=== PATIENT | female | born 1960 ===

== ENCOUNTER 2020-07-30 16:11 | Outpatient (REF) | payer SELFPAY ==
--- NOTE | 2020-07-30 16:12 | US_ITS ---
EXAMINATION: US VENOUS ULTRASOUND WITH DOPPLER LOWER EXTREMITY, LEFT CLINICAL INFORMATION: Pain left lower extremity. Assess for occult DVT. COMPARISON: None TECHNIQUE: Ultrasound of the deep veins is performed from the hip to the calf with compression sonography and color and pulse Doppler assessment. Spectral analysis with color-flow imaging is performed. FINDINGS: There is normal venous compression and respiratory variation and augmented flow. The visualized common femoral vein, superficial femoral vein, profunda femoral vein, popliteal vein, and the trifurcation region shows no evidence of deep venous thrombosis. There is a popliteal fossa cyst present measuring 2.7 x 1.7 x 2.8 cm. US/US venous duplex LE IMPRESSION: 1. No DVT demonstrated in the left lower extremity. 2. Left popliteal fossa cyst 2.8 cm.
== END 2020-07-30 16:12 | disposition home or self-care (01) ==
LOC: HO.HMGCX 16:11
PROVIDERS: Visit Provider Internal Medicine
DX: M79.662 Pain in left lower leg (principal); M79.672 Pain in left foot
CPT/HCPCS: 93971

== ENCOUNTER 2020-10-07 15:24 | Outpatient (REF) | payer OTHER, SELFPAY ==
[2020-10-07 16:05] LABS: MANUAL DIFF FLAG NO
[2020-10-07 16:11] LABS: Basophils Absolute Auto 0.1 X10*3/uL (0.0-0.2); Basophils Percent Auto 0.9 % (0-2); Eosinophils Absolute Auto 0.1 X10*3/uL (0.0-0.4); Hematocrit 42.1 % (37-47); Hemoglobin 13.5 g/dl (12.0-16.0); Imm Gran Abs Auto 0.02 X10*3/uL (0.00-0.03); Imm Gran Pct Auto 0.3 % (0.0-0.4); Lymphocytes Absolute Auto 2.3 X10*3/uL (1.2-4.9); Lymphocytes Percent Auto 35.9 % (20-40); Mean Corpuscular HGB Conc 32.1 g/dl (31.0-35.0); Mean Corpuscular Hemoglobin 28.9 pg (27.0-33.0); Mean Corpuscular Volume 90.1 fL (80-98); Mean Platelet Volume 9.2 fL (9.4-12.3); Monocytes Absolute Auto 0.4 X10*3/uL (0.1-1.2); Monocytes Percent Auto 6.5 % (2-11); Neutrophils Absolute Auto 3.5 X10*3/uL (2.0-8.3); Neutrophils Percent Auto 54.4 % (45-73); Platelet Count 335 X10*3/uL (160-400); Red Blood Count 4.67 X10*6/uL (4.20-5.50); Red Cell Distribution Width 12.6 % (11.0-16.0); White Blood Count 6.5 X10*3/uL (4.8-10.8)
[2020-10-07 16:53] LABS: Alanine Aminotransferase 45 U/L (0-31); Albumin Level 4.1 g/dL (3.5-5.0); Alkaline Phosphatase 85 U/L (39-117); Anion Gap 11 (12-20); Aspartate Amino Transferase 33 U/L (5-31); Bilirubin Total 0.4 mg/dL (0.0-1.0); Blood Urea Nitrogen 16 mg/dL (9-16); C Reactive Protein 0.17 mg/dL (< or = 0.50); Calcium 9.2 mg/dL (8.4-10.2); Carbon Dioxide 27 mmol/L (22-29); Chloride 105 mmol/L (96-108); Cholesterol 202 mg/dL; Estimated Glomerular Filt Rate > 60; Glucose Fasting 83 mg/dL (60-99); HDL Cholesterol 55 mg/dL; LDL Cholesterol Calculated 125 mg/dl; Potassium 4.2 mmol/l (3.3-5.1); Sodium 139 mmol/L (135-145); Total Protein 7.4 g/dL (6.5-8.0); Triglycerides 111 mg/dL
[2020-10-07 17:02] LABS: Erythrocyte Sedimentation Rate 12 MM/HR (0-20)
== END 2020-10-07 15:25 | disposition home or self-care (01) ==
LOC: HO.LAB 15:24
PROVIDERS: Visit Provider Internal Medicine
DX: Z00.01 Encounter for general adult medical examination with abnormal findings (principal); M79.672 Pain in left foot; M79.662 Pain in left lower leg; K21.9 Gastro-esophageal reflux disease without esophagitis; G47.00 Insomnia, unspecified; Z78.0 Asymptomatic menopausal state
CPT/HCPCS: 36415; 80053; 80061; 82306; 85025; 85652; 86140

== ENCOUNTER 2020-11-26 16:16 | Outpatient (REF) | payer OTHER, SELFPAY ==
--- NOTE | ~2020-11-26 | XR_ITS ---
EXAMINATION: XR CHEST CLINICAL INFORMATION: Chest pain COMPARISON: Prior chest radiographs, most recently 10/24/2019 TECHNIQUE: 2 views of the chest were obtained. FINDINGS: Gastric band has been removed since the prior study. There is a small hiatus hernia and there are metallic clips overlying the right upper quadrant of the abdomen. The lungs are well-expanded and there is small amount of linear opacity along the minor fissure which is similar to the prior study. No new focal opacities are identified. There is no pleural effusion or pneumothorax. The cardiomediastinal silhouette is stable in size and contour. Structures of the chest wall are normal for age. XR/XR chest 2V IMPRESSION: No acute intrathoracic process. There is minimal linear opacity along the minor fissure which is similar to prior study. Interval removal of gastric band.
== END 2020-11-26 16:17 | disposition home or self-care (01) ==
LOC: HO.HMGCX 16:16
PROVIDERS: PCP Internal Medicine; Visit Provider Nurse Practitioner Family
DX: R07.89 Other chest pain (principal); R01.1 Cardiac murmur, unspecified; Z20.822 Contact with and (suspected) exposure to COVID-19
CPT/HCPCS: 36415; 71046; U0003; U0005

== ENCOUNTER → 2021-01-21 15:10 | Outpatient (REF) | payer OTHER, SELFPAY ==
--- NOTE | 2021-01-21 15:13 | CA_ITS ---
Transthoracic Echocardiogram Patient (Last, First, Middle): Shelli Hernandez M Gender: Female Date of : 1960 Age: 60 Procedure Date: 01/21/2021 Procedure Type: Transthoracic Echocardiogram Location: OP Height: 172.72 cm Weight: 95.26 kg BSA: 2.09 m2 Heart Rate: bpm BP: 140 / 80 mmHg [employer] Clerks Supervisor: ALEX Paredes MD: Bebeto Danielle [facility] Sample Checker: Trey Gamez MD Symptoms: R01.1 - Cardiac murmur, unspecified Study Quality: Fair ECG Rhythm: Sinus Conclusions: - 1. Normal LV systolic function with impaired relaxation filling pattern 2. Trivial aortic regurgitation 3. No gross pericardial effusion Findings Left Ventricle Normal left ventricular size, thickness, and systolic function. The visually estimated ejection fraction is between 60-65%. Spectral Doppler is indicative of an impaired relaxation filling pattern. E/E prime ratio is between 8 and 15 consistent with indeterminate filling pressures. Right Ventricle Normal right ventricular cavity size and systolic function. Atria The left atrium is normal in size. Interatrial shunt cannot be excluded. The right atrium is normal in size. Aortic Valve The aortic valve structure and function is likely normal. There is no aortic valve stenosis. There is trace (trivial) aortic valve regurgitation. Mitral Valve Normal mitral valve structure and function. There is trace mitral valve regurgitation. There is no mitral valve stenosis. Pulmonic Valve The pulmonic valve was not well visualized. Tricuspid Valve Likely normal tricuspid valve structure and function. The right ventricular systolic pressure is not calculated. Great Vessels All visible segments of the aorta are normal in size. The pulmonary artery was not well visualized. Venous The inferior vena cava is normal in size. Pericardium/Pleural There is no evidence of pericardial effusion. Prior Study Comparison No prior study available for comparison. Measurements M-Mode Liner Measurements Normals - Women/Men AOV Cusps: 2.00 1.5-2.6 cm/m2 2D Linear Measurements IVSd: 1.02 0.6-0.9/0.6-1.0 cm LVIDd: 4.63 3.9-5.3/4.2-5.9 cm LVIDd Index: 2.22 2.4-3.2/2.2-3.1 cm/m2 LVIDs: 2.20 2.0-3.6 cm LVPWd: 1.23 0.7-1.1 cm Ao Root: 2.50 2.1-3.5 cm LA Diam: 3.00 2.7-3.8/3.0-4.0 cm LAIDs Index: 1.44 1.5-2.3 cm/m2 LV Mass: 235.46 67-162/88-224 g LV Mass Index: 112.66 43-95/49-115 g/m2 LVOT Diam: 2.00 3.0+(-)1.3 cm 2D Systolic Function EF 4C: 50.90 >55% EF 2C: 61.10 >55% EF BiP: 56.90 >55% Mitral Valve MV Pk E: 0.87 MV PK A: 1.05 MV Decel Time: 254.00 E/A: 0.80 E'Lateral: 9.25 E'Medial: 45.00 E/E' Med: 1.90 E/E' Lat: 9.40 PHT: 74.00 MVA PHT: 2.97 Decel Worth: 3.44 Aortic Valve AoV Pk Dionisio: 1.54 AoV Mn Dionisio: 1.08 AoV VTI: 0.29 AoV Pk Grad: 9.00 Aov Mn Grad: 5.00 LIO Cont.VTI: 1.78 LVOT LVOT Pk Dionisio: 0.80 LVOT Mn Dionisio: 0.54 LVOT VTI: 0.17 LVOT Pk Grad: 3.00 LVOT Mn Grad: 1.00 LVOT Diam: 2.00 LVOT Area: 3.14 Diastolic Function MV Pk E: 0.87 MV Pk A: 1.05 E/A: 0.80 E'Medial: 45.00 E/E' Med: 1.90 E' Laterial: 9.25 E/E' Lat: 9.40 Tricuspid Valve RA Press: 3.00 Great Vessels Aorta Ao Root-2D: 2.50 2.0-3.7 cm Ao Asc: 3.00 2.1-3.4 cm Ao Arch: 2.50 Pulmonary Valve PV Pk Dionisio: 1.41 Peak PV Grad: 8.00 Updated in Other Vendor System with Status of Final Trey Gamez MD electronically signed on 01/22/2021 3:18:46 PM with status of Final
== END ==
LOC: HO.CARD 15:10
PROVIDERS: Visit Provider Nurse Practitioner Family
DX: R01.1 Cardiac murmur, unspecified (principal)
CPT/HCPCS: 93306

== ENCOUNTER 2021-03-17 15:39 | Outpatient (REF) | payer OTHER, SELFPAY ==
[2021-03-17 16:34] LABS: Blood Urea Nitrogen 16 mg/dL (9-16); Estimated Glomerular Filt Rate > 60
== END 2021-03-17 15:40 | disposition home or self-care (01) ==
LOC: HO.LAB 15:39
PROVIDERS: PCP Internal Medicine; Visit Provider Radiology Vascular & Interventional Radiology
DX: R79.89 Other specified abnormal findings of blood chemistry (principal); R94.4 Abnormal results of kidney function studies
CPT/HCPCS: 36415; 82565; 84520

== ENCOUNTER 2021-09-13 12:59 | Outpatient (REF) | payer OTHER, SELFPAY ==
--- NOTE | ~2021-09-13 | XR_ITS ---
EXAMINATION: XR CHEST CLINICAL INFORMATION: R07.89 - Other chest pain COMPARISON: Chest radiographs 11/26/2020, 10/24/2019 TECHNIQUE: 2 views of the chest were obtained. FINDINGS: There is no acute intrathoracic disease. No pneumothorax, pleural reaction, airspace opacity, or effusion. Again, there is linear scarring adjacent to minor fissure and vertically oriented scar left infrahilar region on lateral view, both stable from prior exams. The costophrenic sulci are clear. The heart is normal in size. The hilar and mediastinal contours and bony structures are unremarkable. XR/XR chest 2V IMPRESSION: Unremarkable examination.
[2021-09-13 16:41] LABS: MANUAL DIFF FLAG NO
[2021-09-13 16:49] LABS: Basophils Absolute Auto 0.1 X10*3/uL (0.0-0.2); Basophils Percent Auto 0.7 % (0-2); Eosinophils Absolute Auto 0.1 X10*3/uL (0.0-0.4); Eosinophils Percent Auto 0.9 % (0-4); Hematocrit 46.6 % (37.0-47.0); Hemoglobin 14.5 g/dl (12.0-16.0); Imm Gran Abs Auto 0.04 X10*3/uL (0.00-0.03); Imm Gran Pct Auto 0.4 % (0.0-0.4); Lymphocytes Percent Auto 31.5 % (20-40); Mean Corpuscular HGB Conc 31.1 g/dl (31.0-35.0); Mean Corpuscular Hemoglobin 28.8 pg (27.0-33.0); Mean Corpuscular Volume 92.6 fL (80.0-98.0); Mean Platelet Volume 9.2 fL (9.4-12.3); Monocytes Absolute Auto 0.5 X10*3/uL (0.1-1.2); Monocytes Percent Auto 5.6 % (2-11); Neutrophils Absolute Auto 5.8 x10*3/uL (2.0-8.3); Neutrophils Percent Auto 60.9 % (45-73); Platelet Count 437 X10*3/uL (160-400); Red Blood Count 5.03 X10*6/uL (4.20-5.50); Red Cell Distribution Width 12.9 % (11.0-16.0); White Blood Count 9.5 X10*3/uL (4.8-10.8)
[2021-09-13 17:07] LABS: Alanine Aminotransferase 48 U/L (0-31); Albumin Level 4.3 g/dL (3.5-5.0); Alkaline Phosphatase 93 U/L (39-117); Anion Gap 14 (12-20); Aspartate Amino Transferase 24 U/L (5-31); Bilirubin Total 0.3 mg/dL (0.0-1.0); Blood Urea Nitrogen 24 mg/dL (9-16); Carbon Dioxide 28 mmol/L (22-29); Chloride 104 mmol/L (96-108); Cholesterol 211 mg/dL; Estimated Glomerular Filt Rate 59; Glucose Fasting 93 mg/dL (60-99); HDL Cholesterol 64 mg/dL; LDL Cholesterol Calculated 114 mg/dl; Potassium 4.9 mmol/L (3.3-5.1); Sodium 141 mmol/L (135-145); Total Protein 8.3 g/dL (6.5-8.0); Triglycerides 168 mg/dL
[2021-09-13 17:27] LABS: TSH reflex Free T4 1.58 uIU/mL (0.32-4.0); Vitamin D 25-OH Total 51.2 ng/mL (>30)
[2021-09-14 05:26] LABS: EBV-VCA IgM Ab <36.00 U/mL
[2021-09-14 05:30] LABS: Lyme Abs Screen <0.90 index
== END 2021-09-13 13:00 | disposition home or self-care (01) ==
LOC: HO.HMGCLDS 12:59
PROVIDERS: Absent Provider Nurse Practitioner Family; PCP Internal Medicine; Visit Provider Internal Medicine
DX: Z00.01 Encounter for general adult medical examination with abnormal findings (principal); I10 Essential (primary) hypertension; G47.00 Insomnia, unspecified; K21.9 Gastro-esophageal reflux disease without esophagitis; M54.17 Radiculopathy, lumbosacral region; R07.89 Other chest pain; R53.83 Other fatigue; Z78.0 Asymptomatic menopausal state; Z86.19 Personal history of other infectious and parasitic diseases
CPT/HCPCS: 36415; 71046; 80048; 80053; 80061; 82306; 84443; 85025; 86617; 86618; 86664; 86665

== ENCOUNTER 2023-01-23 14:29 | Outpatient (REF) | payer OTHER, SELFPAY ==
--- NOTE | ~2023-01-23 | US_ITS ---
EXAMINATION: US ABDOMEN COMPLETE CLINICAL INFORMATION: Right upper quadrant pain. COMPARISON: None available. TECHNIQUE: Real-time imaging of the abdominal viscera. FINDINGS: PANCREAS: The head and the body the pancreas is homogeneous echotexture. The tail tail is obscured by overlying gas. ABDOMINAL AORTA: The proximal abdominal aorta is not visualized. The mid and the distal abdominal aorta normal caliber. INFERIOR VENA CAVA: Visualized portions are normal. LIVER: The liver is normal in size. The liver contour is normal. Parenchymal echogenicity is echogenic. No focal hepatic lesion. There is no intrahepatic biliary duct dilatation seen. GALLBLADDER: Gallbladder has been surgically removed. COMMON BILE DUCT: Normal in caliber measuring 0.7 cm in diameter. RIGHT KIDNEY: There is a small echogenic stone measuring 0.3 x 0.2 x 0.2 cm. No additional stones seen. There is no caliectasis or hydronephrosis. The kidney measures 10.4 cm in maximum dimension. LEFT KIDNEY: There is an echogenic stone lower pole measuring 0.4 x 0.2 x 0.3 cm. No additional stones seen. There is no caliectasis or hydronephrosis. The kidney measures 10.7 cm in maximum dimension. SPLEEN: Normal. The spleen measures 10.4 cm in maximum dimension. FREE FLUID: None. US/US abdomen complete IMPRESSION: Diffuse hepatic steatosis. No focal lesion seen. Bilateral nonobstructive echogenic renal calculi.
[2023-01-23 16:39] LABS: MANUAL DIFF FLAG NO
[2023-01-23 16:44] LABS: Basophils Absolute Auto 0.1 X10*3/uL (0.0-0.2); Eosinophils Absolute Auto 0.1 X10*3/uL (0.0-0.4); Eosinophils Percent Auto 2.2 % (0-4); Hematocrit 41.3 % (37.0-47.0); Hemoglobin 13.3 g/dl (12.0-16.0); Imm Gran Abs Auto 0.01 X10*3/uL (0.00-0.03); Imm Gran Pct Auto 0.2 % (0.0-0.4); Lymphocytes Absolute Auto 2.2 X10*3/uL (1.2-4.9); Mean Corpuscular HGB Conc 32.2 g/dl (31.0-35.0); Mean Corpuscular Volume 83.8 fL (80.0-98.0); Mean Platelet Volume 9.4 fL (9.4-12.3); Monocytes Absolute Auto 0.4 X10*3/uL (0.1-1.2); Monocytes Percent Auto 6.5 % (2-11); Neutrophils Absolute Auto 3.5 x10*3/uL (2.0-8.3); Neutrophils Percent Auto 55.1 % (45-73); Platelet Count 342 X10*3/uL (160-400); Red Blood Count 4.93 X10*6/uL (4.20-5.50); Red Cell Distribution Width 16.4 % (11.0-16.0); White Blood Count 6.3 X10*3/uL (4.8-10.8)
[2023-01-23 17:05] LABS: Alanine Aminotransferase 40 U/L (0-31); Alkaline Phosphatase 87 U/L (39-117); Anion Gap 13 (12-20); Aspartate Amino Transferase 30 U/L (5-31); Bilirubin Total 0.3 mg/dL (0.0-1.0); Blood Urea Nitrogen 14 mg/dL (9-16); Calcium 9.6 mg/dL (8.4-10.2); Carbon Dioxide 27 mmol/L (22-29); Chloride 107 mmol/L (96-108); Estimated Glomerular Filt Rate > 60; Glucose Fasting 98 mg/dL (60-99); Potassium 4.5 mmol/L (3.3-5.1); Sodium 142 mmol/L (135-145); Total Protein 7.2 g/dL (6.5-8.0)
== END 2023-01-23 14:30 | disposition home or self-care (01) ==
LOC: HO.HMGCLDS 14:29
PROVIDERS: PCP Internal Medicine; Visit Provider Internal Medicine
DX: R10.11 Right upper quadrant pain (principal)
CPT/HCPCS: 36415; 76700; 80053; 85025

== ENCOUNTER → 2023-05-30 16:32 | Outpatient (AMB) | payer OTHER, SELFPAY ==
--- NOTE | 2023-05-30 16:29 | MHC.PC.OV ---
Intake Visit Reasons: Discuss sleep apnea [phone] Allergies No Known Allergies Allergy (Unknown, Verified 05/30/23 17:06) N/A Medication List - Last Reconciled 05/30/23 by Jody Feliciano MD aspirin (Adult Low Dose Aspirin) 81 mg PO DAILY bupropion HCl 300 mg PO DAILY lisinopril 10 mg PO QAM 5 days omeprazole 20 mg PO BID zolpidem 10 mg PO BEDTIME PRN Tobacco use date assessed: 05/30/23 Dental Screening Dental Screen Date: 05/30/23 Did you have a dental visit in the last 12 months?: Yes Did you have a dental problem in the last 6 months where you did not have access to dental care?: No Was dental information given to patient?: Patient has dentist HPI Discuss sleep apnea [phone] HPI Details 63-year-old lady with hypertension, insomnia, has generalized anxiety disorder, May-Thurner syndrome, mild intermittent asthma, and cervical DDD, here today complaining of longstanding history of difficulty with sees initiating and maintaining sleep. Patient states that she has frequent nighttime awakenings, sometimes would be awakened by coughing spells. Has been told that she snores a lot and has also been told that she has had episodes where she would stop breathing when she sleeps for several seconds. Has been going on now for several years, has just been taking zolpidem to help her sleep at night. She also complains of excessive daytime sleepiness, wakes up tired, and frequently feels the need to take naps during the day [facility] Medical History Cervical spondylosis with myelopathy May-Thurner syndrome Left lumbosacral radiculopathy Essential hypertension Generalized anxiety disorder History of empyema of pleura Insomnia GERD (gastroesophageal reflux disease) History of ADHD Mild intermittent asthma in adult without complication Surgical History History of colonoscopy History of thoracentesis H/O laparoscopic adjustable gastric banding Hx of cholecystectomy H/O laparoscopic adjustable gastric banding Family History Father Essential hypertension Mental health disorder Mother No problems noted. Daughter No problems noted. Social History Housing: Condominium Alcohol intake: never Patient Tobacco Use Status: Never used Tobacco e-Cigarette/Vaping Use: Never Used service: No Current occupational status: retired Cognitive needs: No Hearing needs: No Vision needs: Yes Questionnaire Thrive Questionnaire Date Thrive assessed: 01/23/23 GILLIAN-7 AMB Questionnaire GILLIAN-7 Date GILLIAN - 7 assessed: 01/23/23 Source: Developed by Drs. Sidney Patel, Maeve Rahman, Ralph Sanz and colleagues, with an educational pedro from [employer]. [place] Sleepiness Scale Questions Sitting and reading: moderate chance of dozing Watching TV: moderate chance of dozing Sitting inactive in a theater, movie etc.: slight chance of dozing As a passenger in a car for an hour without break: slight chance of dozing Lying down in the afternoon when circumstances permit: high chance of dozing Sitting and talking to someone: would never doze Sitting quietly after lunch without alcohol: would never doze In a car, while stopped for a few minutes in the traffic: would never doze ESS < 10: normal, ESS > 12: pathologic: 9 Review of Systems Const Denies headache(s) and Denies weakness Eyes Denies change in vision ENT Denies dizziness, Denies headache(s), Denies nasal congestion and Denies nasal discharge Card Denies chest pain, Denies lightheadedness, Denies palpitations and Denies dyspnea Resp Denies chest congestion, Denies cough, Denies dyspnea and Denies wheezing GI Denies abdominal pain and Denies change in bowel habits Denies urinary frequency, Denies dysuria and Denies urinary urgency Musc Reports back pain (Recurrent in lower back and posterior neck), Denies deformity, Denies limited range of motion, Denies numbness and Reports stiffness Neuro Denies dizziness, Denies headache(s), Denies numbness and Denies weakness Psych Reports no additional complaints Endo Denies polydipsia, Denies polyuria and Denies palpitations Aller/Immun Denies seasonal rhinorrhea and Denies wheezing Physical exam (Primary Care) Tobacco/Smoking Status: Tobacco use Status Tobacco use date assessed 05/30/23 05/30/23 16:31 Patient Tobacco Use Status Never used Tobacco 05/30/23 16:29 e-Cigarette/Vaping Use Never Used 05/30/23 16:29 Thrive Assessment: Date of Thrive Assessment Date Thrive assessed 01/23/23 05/30/23 16:29 Telehealth Telehealth Location of provider rendering services: practice address Location of patient: address on file Patient Identification confirmed using: Name, : Yes Telehealth method: video Patient verbally consented to treatment: Yes Patient verbally consented to billing insurance company: Yes Patient informed of any privacy concerns related to visit: Yes Minutes spent on Phone/Video with Pt.: 15 Assessment and Plan Assessment & Plan (1) Insomnia: Code(s): G47.00 - Insomnia, unspecified Qualifiers: Insomnia type: primary Qualified Code(s): F51.01 - Primary insomnia (2) Loud snoring: Code(s): R06.83 - Snoring (3) Witnessed apneic spells: Code(s): R06.81 - Apnea, not elsewhere classified (4) Excessive daytime sleepiness: Code(s): G47.19 - Other hypersomnia (5) Sleeping difficulty: Code(s): G47.9 - Sleep disorder, unspecified Plan Will refer to [facility] at [facility] for evaluation regarding sleep apnea. Advised to lie on her side when sleeping, takes zolpidem only as needed. Avoid drinking any caffeinated drinks, alcohol at night Orders: Referrals Sleep Medicine Referral G47.00 - Insomnia, unspecified, G47.19 - Other hypersomnia, G47.9 - Sleep disorder, unspecified, R06.81 - Apnea, not elsewhere classified, R06.83 - Snoring Coding Level of Care Code Tele Est Pt Level 3 (60100) Diagnoses Primary insomnia F51.01 Insomnia type: primary Loud snoring R06.83 Witnessed apneic spells R06.81 Excessive daytime sleepiness G47.19 Sleeping difficulty G47.9
== END ==
PROVIDERS: PCP Internal Medicine; Visit Provider Internal Medicine
DX: F51.01 Primary insomnia (principal); R06.83 Snoring; R06.81 Apnea, not elsewhere classified; G47.19 Other hypersomnia; G47.9 Sleep disorder, unspecified
CPT/HCPCS: 99213

== ENCOUNTER 2023-10-19 13:53 | Outpatient (AMB) | payer OTHER, SELFPAY ==
--- NOTE | 2023-10-19 14:09 | A.OFFPC_ITS ---
Vital Signs 10/19/23 14:28 BMI Reason not done Patient refused/unable BP 140/84 H Blood Pressure Location Lt brachial Position Sitting Pulse 83 Pulse Source Pulse Oximeter Pulse Oximetry (%) 96 Oxygen Delivery Method Room Air Intake Visit Reasons: PHY Intake Note: Pt is here today for her PE: mammogram 04/27/21, colonoscopy 02/23/21: papsmear 5yrs has an appt with OB 11/2023 Allergies No Known Allergies Allergy (Unknown, Verified 10/19/23 14:48) N/A Medication List - Last Reconciled 10/19/23 by Jody Feliciano MD aspirin (Adult Low Dose Aspirin) 81 mg PO DAILY bupropion HCl 150 mg PO DAILY lisinopril 20 mg PO QAM omeprazole 20 mg PO BID sertraline 50 mg PO DAILY zolpidem 10 mg PO BEDTIME PRN Tobacco use date assessed: 10/19/23 Dental Screening Dental Screen Date: 10/19/23 Did you have a dental visit in the last 12 months?: Yes Did you have a dental problem in the last 6 months where you did not have access to dental care?: No Was dental information given to patient?: Patient has dentist HPI YANA HPI Details 63-year-old lady here today for her phys ical exam. She is due for her breast cancer screening, had her screening mammogram 04/27/21, had her colonoscopy 02/23/21, and her last pap smear was 5yrs ago per patient. She states that she has an appt with OB 11/2023. Has hypertension currently on lisinopril 10 mg in the morning, blood pressure today is elevated. Denies any chest pain no headache or shortness of breath. Has generalized anxiety disorder currently taking surgery 50 mg once a day and bupropion HCL 300 mg once a day in a.m.. She has chronic insomnia, for which he takes zolpidem 10 mg at bedtime [facility] Medical History (Updated 10/23/23 @ 01:19 by Jody Feliciano MD) Cervical spondylosis with myelopathy May-Thurner syndrome Left lumbosacral radiculopathy Essential hypertension Generalized anxiety disorder History of empyema of pleura Insomnia GERD (gastroesophageal reflux disease) History of ADHD Mild intermittent asthma in adult without complication Surgical History History of colonoscopy History of thoracentesis H/O laparoscopic adjustable gastric banding Hx of cholecystectomy H/O laparoscopic adjustable gastric banding Family History Father Essential hypertension Mental health disorder Mother No problems noted. Daughter No problems noted. Social History Housing: Condominium Alcohol intake: never Patient Tobacco Use Status: Never used Tobacco e-Cigarette/Vaping Use: Never Used service: No Current occupational status: retired Cognitive needs: No Hearing needs: No Vision needs: Yes Questionnaire PHQ-9 Over the last 2 weeks, how often have you been bothered by any of the following problems? 1. Little interest or pleasure in doing things: several days 2. Feeling down, depressed, or hopeless: not at all 3. Trouble falling or staying asleep, or sleeping too much: several days 4. Feeling tired or having little energy: several days 5. Poor appetite or overeating: several days 6. Feeling bad about yourself - or that you are a failure or have let yourself or your family down: not at all 7. Trouble concentrating on things, such as reading the newspaper or watching television: not at all 8. Moving or speaking so slowly that other people could have noticed. Or the opposite - being so fidgety or restless that you have been moving around a lot more than usual: not at all 9. Thoughts that you would be better off or of hurting yourself in some way: not at all Total score: 4 Depression Screening Interpretation: Negative Depression Screening Done: Yes 78192 - PHQ-9 Billing: Yes Source: Developed by Drs. Sidney Patel, Maeve Rahman, Ralph Sanz and colleagues, with an educational pedro from [employer]. Thrive Questionnaire Date Thrive assessed: 10/19/23 I am a: Patient What is your living situation today?: I have a steady place to live Within the past 12 months, did the food you bought not last and you didn't have the money to get more?: Never true Within the past 12 months, did you worry whether your food would run out before you got money to buy more?: Never true Do you have trouble paying for medicines?: No Do you have trouble getting transportation to medical appointments?: No Do you have trouble paying your heating and electricity bill?: No Do you have trouble taking care of your child, family member or friend?: No Do you have trouble with day-to-day activities such as bathing, preparing meals, shopping, managing finances, etc.?: No Are you currently unemployed and looking for a job?: No Are you interested in more education?: No THRIVE Score: 0 AUDIT C Alcohol Use Questionnaire (AUDIT-C) 1. How often do you have a drink containing alcohol?: Monthly or less 2. How many drinks containing alcohol do you have on a typical day when you are drinking?: 1 or 2 3. How often do you have six or more drinks on one occasion?: Never Total Score: 1 GILLIAN-7 AMB Questionnaire GILLIAN-7 Date GILLIAN - 7 assessed: 10/19/23 Feeling nervous, anxious, or on edge: 1 = Several days Not being able to stop or control worryin = Several days Worrying too much about different things: 1 = Several days Trouble relaxin = Several days Being so restless that it is hard to sit still: 0 = Not at all Becoming easily annoyed or irritable: 1 = Several days Feeling afraid as if something awful might happen: 1 = Several days Total GILLIAN-7 score (0-4 normal; 5-9 mild; 10-14 moderate; 15-21 severe): 6 Source: Developed by Drs. Sidney Patel, Maeve Rahman, Ralph Sanz and colleagues, with an educational perdo from [employer]. GILLIAN-7 Assessment Billing GILLIAN-7 Assessment Tool: GILLIAN-7 Assessment 08809 Review of Systems Const Denies headache(s) and Denies weakness Eyes Denies change in vision ENT Denies dizziness, Denies headache(s), Denies nasal congestion and Denies nasal discharge Card Denies chest pain, Denies lightheadedness, Denies palpitations and Denies dyspnea Resp Denies chest congestion, Denies cough, Denies dyspnea and Denies wheezing GI Denies abdominal pain and Denies change in bowel habits Denies urinary frequency, Denies dysuria and Denies urinary urgency Musc Reports no additional complaints Skin/Breast Denies breast pain, Denies breast mass and Denies rash Neuro Denies dizziness, Denies headache(s) and Denies weakness Psych Reports no additional complaints Endo Denies polydipsia, Denies polyuria and Denies palpitations William/Lymph Reports no additional complaints Aller/Immun Denies seasonal rhinorrhea and Denies wheezing Physical exam (Primary Care) Vital Signs: Last Vital Signs Pulse 83 10/19/23 14:28 BP 140/84 H 10/19/23 14:28 Pulse Ox 96 10/19/23 14:28 Oxygen Delivery Method Room Air 10/19/23 14:28 Tobacco/Smoking Status: Tobacco use Status Tobacco use date assessed 10/19/23 10/19/23 14:11 Patient Tobacco Use Status Never used Tobacco 10/19/23 14:11 e-Cigarette/Vaping Use Never Used 10/19/23 14:11 PHQ-9: PHQ-9 Score PHQ-9: Total score 5 10/19/23 15:13 Depression Screening Interpretation: Negative Thrive Assessment: Date of Thrive Assessment Date Thrive assessed 10/19/23 10/19/23 14:11 Const Other: Alert oriented x3, no acute cardiorespiratory distress, ambulatory normal gait Orientation/consciousness: patient oriented x3 Neck Other: Supple with no lymphadenopathy, thyroid gland nonpalpable Chest Chest palpation & inspection: normal inspection of the chest and tenderness costal cartilage (Right costal margin) Resp Effort & Inspection: normal respiratory effort and able to speak in complete sentences Auscultation: clear to auscultation bilaterally Cardio Other: S1-S2 present regular rate and rhythm GI Other: Normal bowel sounds, soft, slight tenderness on deep palpation over right upper quadrant, no mass, no rebound or guarding General: Yes no CVA tenderness Back/Spine/Pelvis Back: no CVA tenderness and No back tenderness Skin General skin exam: no rashes or lesions noted Neuro General: patient oriented x3, gait normal, tone normal and No moves all extremities Extrem General: Yes full ROM, Yes no joint enlargement and Yes no pedal edema Psych Appearance: grossly normal and well kempt Speech and movement: Normal speech and movement present Affect: normal affect Attitude: cooperative Assessment and Plan Assessment & Plan (1) Annual visit for general adult medical examination with abnormal findings: Code(s): Z00.01 - Encounter for general adult medical examination with abnormal findings Plan: Will check appropriate labs. Recommended dental visit every 6 months and regular eye exams, at least every 2 years. Take adequate calcium in diet and vitamin-D 3 at 2000 IU per cap once a day, in addition to weight-bearing exercises to help maintain good muscle tone and weight control. Instructed to do self-breast exam, and recommended to get yearly mammogram, patient states that she already has an appointment schedule. Patient reminded to get her COVID booster, flu vaccine and 2nd dose of her shingles vaccine. Up-to-date with her Prevnar 20 and Tdap. Declines to get RSV vaccination. Up-to-date with her screening colonoscopy (2) Essential hypertension: Code(s): I10 - Essential (primary) hypertension Plan: Will, increased dose of lisinopril to 20 mg once a day, reinforced adherence to healthy eating habits and getting regular exercise. (3) Generalized anxiety disorder: Code(s): F41.1 - Generalized anxiety disorder Plan: Currently on sertraline and bupropion the same dose. (4) Insomnia: Code(s): G47.00 - Insomnia, unspecified Qualifiers: Insomnia type: primary Qualified Code(s): F51.01 - Primary insomnia Plan: Takes zolpidem 10 mg once at bedtime as needed for difficulty sleeping (5) GERD (gastroesophageal reflux disease): Comment: Had EGD done by Dr. grider in 2013, with a which also showed hiatal hernia Code(s): K21.9 - Gastro-esophageal reflux disease without esophagitis Plan: Currently on omeprazole 20 mg 1 capsule twice a day (6) May-Thurner syndrome: Comment: seen at [facility] , had venogram showing stenotic left common iliac vein s/p placement mike-expanding stent on 03/23/2021 sees Josephine VERDUZCO and Dr Allan Code(s): I87.1 - Compression of vein Orders: Orders Lipid Panel 10/19/23 F41.1 - Generalized anxiety disorder, G47.00 - Insomnia, unspecified, I10 - Essential (primary) hypertension, I87.1 - Compression of vein, K21.9 - Gastro-esophageal reflux disease without esophagitis TSH reflex Free T4 10/19/23 F41.1 - Generalized anxiety disorder, G47.00 - Insomnia, unspecified, I10 - Essential (primary) hypertension, I87.1 - Compression of vein, K21.9 - Gastro-esophageal reflux disease without esophagitis Comprehensive [place]. Panel Fast 10/19/23 F41.1 - Generalized anxiety disorder, G47.00 - Insomnia, unspecified, I10 - Essential (primary) hypertension, I87.1 - Compression of vein, K21.9 - Gastro-esophageal reflux disease without esophagitis Vitamin D 25-OH Total 10/19/23 F41.1 - Generalized anxiety disorder, G47.00 - Insomnia, unspecified, I10 - Essential (primary) hypertension, I87.1 - Compression of vein, K21.9 - Gastro-esophageal reflux disease without esophagitis Medications: Changed From lisinopril 10 mg PO QAM 90 tabs 0RF I10 - Essential (primary) hypertension To lisinopril 20 mg PO QAM 90 tabs 1RF I10 - Essential (primary) hypertension Coding Level of Care Code Est Pt Prev Care 40-64y(70497) Diagnoses Annual visit for general adult medical examination with abnormal findings Z00.01 Essential hypertension I10 Generalized anxiety disorder F41.1 Primary insomnia F51.01 Insomnia type: primary GERD (gastroesophageal reflux disease) K21.9 May-Thurner syndrome I87.1 Additional Codes GILLIAN-7 Assessment Billing - GILLIAN-7 Assessment Tool: GILLIAN-7 Assessment 76290 ([id number])
[2023-10-19 14:28] VITALS: BP 140/84; PULSE 83; O2SAT 96
== END 2023-10-19 15:54 | disposition home or self-care (01) ==
PROVIDERS: PCP Internal Medicine; Visit Provider Internal Medicine
DX: Z00.01 Encounter for general adult medical examination with abnormal findings (principal); I10 Essential (primary) hypertension; F41.1 Generalized anxiety disorder; F51.01 Primary insomnia; K21.9 Gastro-esophageal reflux disease without esophagitis; I87.1 Compression of vein
CPT/HCPCS: 99213; 99396

== ENCOUNTER 2023-11-21 10:15 | Outpatient (REF) | payer OTHER, SELFPAY ==
[2023-11-21 14:11] LABS: Alanine Aminotransferase 36 U/L (0-31); Albumin Level 4.2 g/dL (3.5-5.0); Alkaline Phosphatase 80 U/L (39-117); Anion Gap 10 (12-20); Aspartate Amino Transferase 24 U/L (5-31); Bilirubin Total 0.2 mg/dL (0.0-1.0); Blood Urea Nitrogen 22 mg/dL (9-16); Calcium 9.6 mg/dL (8.4-10.2); Carbon Dioxide 29 mmol/L (22-29); Chloride 106 mmol/L (96-108); Cholesterol 211 mg/dL (<200); Estimated Glomerular Filt Rate > 60; Glucose Fasting 100 mg/dL (60-99); HDL Cholesterol 54 mg/dL (>40); LDL Cholesterol Calculated 131 mg/dL (<100); Potassium 4.1 mmol/L (3.3-5.1); Sodium 141 mmol/L (135-145); TSH reflex Free T4 2.04 uIU/mL (0.32-4.0); Total Protein 7.9 g/dL (6.5-8.0); Triglycerides 132 mg/dL (<150); Vitamin D 25-OH Total 77.6 ng/mL (>30)
== END 2023-11-21 10:16 | disposition home or self-care (01) ==
LOC: HO.HMGCLDS 10:15
PROVIDERS: PCP Internal Medicine; Visit Provider Internal Medicine
DX: I10 Essential (primary) hypertension (principal); F41.1 Generalized anxiety disorder; G47.00 Insomnia, unspecified; K21.9 Gastro-esophageal reflux disease without esophagitis; I87.1 Compression of vein
CPT/HCPCS: 36415; 80053; 80061; 82306; 84443

== ENCOUNTER 2024-02-15 14:45 | Outpatient (AMB) | payer OTHER, SELFPAY ==
--- NOTE | 2024-02-15 15:08 | MHC.PC.OV ---
Vital Signs 02/15/24 15:16 Height 5 ft 8 in Weight 237 lb BMI 36.0 BP 138/78 Blood Pressure Location Rt brachial Position Sitting Pulse 79 Pulse Source Pulse Oximeter Pulse Oximetry (%) 97 Oxygen Delivery Method Room Air Intake Visit Reasons: Follow Up Medication Intake Note: pt is here for follow up regarding medication for weight loss Allergies No Known Allergies Allergy (Unknown, Verified 02/15/24 15:33) N/A Medication List - Last Reconciled 02/15/24 by SHAWNEE Jackson aspirin (Adult Low Dose Aspirin) 81 mg PO DAILY bupropion HCl XL 150 mg PO QAM lisinopril 10 mg PO DAILY omeprazole 20 mg PO BID sertraline 50 mg PO DAILY zolpidem 10 mg PO BEDTIME PRN Tobacco use date assessed: 10/19/23 Dental Screening Dental Screen Date: 10/19/23 HPI HPI Comments History of Present Illness Details Patient is a 63-year-old female in today for follow-up regarding obesity and weight loss. Patient has longstanding history of trying to lose weight including history of bariatric surgery that had to be reversed in 2019, dietitian, low carb diets, exercise. Patient has concerns due to elevated cholesterol levels, sleep apnea, hypertension. Patient feels like she has exhausted all methods for weight loss and feels like if she does not will exacerbate these other health care issues. Patient offers no GI complaints at the time of appointment. Will order semaglutide. Patient has been educated on side effect profile of this medication. No history of thyroid disorder or thyroid cancer. Patient will schedule follow up in 1 month after started medication for weight loss check. [facility] Medical History Cervical spondylosis with myelopathy May-Thurner syndrome Left lumbosacral radiculopathy Essential hypertension Generalized anxiety disorder History of empyema of pleura Insomnia GERD (gastroesophageal reflux disease) History of ADHD Mild intermittent asthma in adult without complication Surgical History History of colonoscopy History of thoracentesis H/O laparoscopic adjustable gastric banding Hx of cholecystectomy H/O laparoscopic adjustable gastric banding Family History Father Essential hypertension Mental health disorder Mother No problems noted. Daughter No problems noted. Social History Housing: Condominium Alcohol intake: never Patient Tobacco Use Status: Never used Tobacco e-Cigarette/Vaping Use: Never Used service: No Current occupational status: retired Cognitive needs: No Hearing needs: No Vision needs: Yes Questionnaire Thrive Questionnaire Date Thrive assessed: 10/19/23 GILLIAN-7 AMB Questionnaire GILLIAN-7 Date GILLIAN - 7 assessed: 10/19/23 Source: Developed by Drs. Sidney Patel, Maeve Rahman, Ralph Sanz and colleagues, with an educational pedro from [employer]. Review of Systems Const All systems reviewed & are unremarkable except as noted in HPI and below Physical exam (Primary Care) Vital Signs: Last Vital Signs Pulse 79 02/15/24 15:16 BP 138/78 02/15/24 15:16 Pulse Ox 97 02/15/24 15:16 Oxygen Delivery Method Room Air 02/15/24 15:16 Care Plan Goal for BP management: Patient will continue to monitor BP at home. BMI result Body Mass Index 36.0 Tobacco/Smoking Status: Tobacco use Status Tobacco use date assessed 10/19/23 02/15/24 15:09 Patient Tobacco Use Status Never used Tobacco 02/15/24 15:09 e-Cigarette/Vaping Use Never Used 02/15/24 15:09 Thrive Assessment: Date of Thrive Assessment Date Thrive assessed 10/19/23 02/15/24 15:09 Const Other: Appearance: Alert.? Oriented X3.? No acute distress.? Head: Normocephalic. Neck: Normal inspection.? Neck supple.? CVS: Normal heart rate and rhythm.? Pulses normal.? Respiratory: No respiratory distress.? Breath sounds normal.? Abdomen: Soft and nontender.? Neuro: Oriented X 3.? Assessment and Plan Assessment & Plan (1) Obesity (BMI 35.0-39.9 without comorbidity): Comment: Will start patient on some neck otitis weekly injection. Patient has exhausted several options including dietary counseling, bariatric surgery, exercise, diet. Patient has been educated on the side effects of these medications. Patient has no history thyroid cancer or thyroid disorder. Code(s): E66.9 - Obesity, unspecified Plan: Will draw labs Plan Patient to follow-up 1 month after starting medication. Coding Level of Care Code Est Pt Level 3 (47753) Diagnoses Obesity (BMI 35.0-39.9 without comorbidity) E66.9 Time Spent (min) 25
[2024-02-15 15:16] VITALS: BP 138/78; PULSE 79; O2SAT 97; BMI 36.0
--- OUTSIDE RECORDS SUMMARY | 2024-02-16 11:22 | XMS_ITS | Continuity of Care Document ---
Author Organization [facility] Address [address] [place] [id number]- Care Team Providers Care Kiln Car Repairer Name Role Phone Braden AVILA, Jody James Primary Care Physician Encounter [facility] [place] Date(s): 05/27/22 - 07/02/22 [facility] [address] [place] [id number]- Attending Physician: Cristiano Villegas MD Admitting Physician: Cristiano Villegas MD Referring Physician: Cristiano Villegas MD Allergies, Adverse Reactions, Alerts No Known Allergies Medications BuPROPion (Eqv-Wellbutrin SR) 150 mg/12 hours oral tablet, extended release 0 Refills, Maintenance, 04/07/20 19:00:00 EDT Start Date: 04/07/20 Status: Ordered eszopiclone 3 mg oral tablet TK 1 T PO IMMEDIATELY BEFORE BED PRF INSOMNIA Start Date: 04/07/20 Status: Ordered omeprazole 20 mg oral enteric coated capsule 1 capsule = 20 mg, By Mouth, Daily, 0 Refills, Maintenance Start Date: 09/26/13 Status: Ordered PARoxetine 20 mg oral tablet 20 mg, 1, tablet, By Mouth, Daily, # 30 tablet, Refills 0, Maintenance, 04/07/20 19:00:00 EDT Start Date: 04/07/20 Status: Ordered Suprep Bowel Prep Kit oral liquid See Instructions, 176mL x 2 per instructions, # 1 kit, 0 Refills, Maintenance, 01/27/21 12:29:00 EDT, [facility] #[id number], Partial fill upon patient request if the prescription is for a schedule II opioid drug., 176mL x 2 per instructions, 170... Start Date: 01/27/21 Status: Ordered Problem List Condition Confirmation Course Effective Dates Status Health St [facility] Informant Gastric reflux Confirmed Active Social History Social History Type Response Smoking Status Never (less than 100 in lifetime) entered on: 03/05/19 Sex Patient Care team information Personnel Name: Braden AVILA , Jody James Address: Address: [address] [place] [address]
--- OUTSIDE RECORDS SUMMARY | 2024-02-16 11:23 | XMS_ITS | Continuity of Care Document ---
Author Organization [facility] Address [address] [place] [address] [address] [place] [address]- Care Team Providers Care Cryptologic Supervisor Name Role Phone Jesus Epps DO Primary Care Physician [phone] Encounter [facility] [place] Date(s): 04/27/20 - 05/27/[address] [place] [address]- [facility] Attending Physician: Tono Peñaloza Admitting Physician: AdmtrTono Referring Physician: Admtr ArJason Allergies, Adverse Reactions, Alerts Substance Reaction Severity Status NKA Active Medications BuPROPion (Eqv-Wellbutrin SR) 150 mg/12 hours [...] 19:00:00 EDT Start Date: 04/07/20 Status: Ordered Problem List Condition Effective Dates Status Health Status Inform ant Gastric reflux(Confirmed) Active Social History Social History Type Response Smoking Status Never (less than 100 in lifetime) entered on: 03/05/19 Sex
--- OUTSIDE RECORDS SUMMARY | 2024-02-16 11:23 | XMS_ITS | Continuity of Care Document ---
Author Organization [facility] Address [address] [place] [id number]- Care Team Providers Care Lock Tender Name Role Phone Braden AVILA, Jody James Primary Care Physician [place] [facility] [place] 07/02/22 [facility] [address] [place] [id number] Attending Physician: Tono Peñaloza Admitting Physician: Tono Peñaloza Referring Physician: Tono Peñaloza Allergies, Adverse Reactions, Alerts No Known Allergies [...] kit, 0 Refills, Maintenance, 01/27/21 12:29:00 EDT, [facility] #[id number], Partial fill upon patient request if the [...] Braden AVILA , Jody James Address: Address: [address] [place] [id number]
--- OUTSIDE RECORDS SUMMARY | 2024-02-16 11:23 | XMS_ITS | Continuity of Care Document ---
Author Organization [facility] Address [address] [facility], [address] Floor, [address] [place] [address]- Care Team Providers Care Dairy Supplies Sales Representative Name Role Phone Braden AVILA, Jody James Primary [id number] Date[facility] - [facility]26/22 [facility] [address], [address], [address] [place] [address]- Attending Physician: Jennifer Galarza Admitting Physician: Jennifer Galarza Referring Physician: Jody Feliciano MD Allergies, Adverse Reactions, Alerts No Known [...] kit, 0 Refills, Maintenance, 01/27/21 12:29:00 EDT, [facility] #[id number], Partial fill upon patient request if the prescription is for a schedule II opioid drug., 176mL x 2 per instructions, 170... Start Date: 01/27/21 Status: Ordered Problem List Condition Effective Dates Status Health Status Inform ant Gastric reflux(Confirmed) Active Social History Social History Type Response Smoking Status Never (less than 100 in lifetime) entered on: 03/05/19 Sex Care Team Personnel Name: Braden AVILA , Jody James Address: [address] [place], [place] [address]
--- OUTSIDE RECORDS SUMMARY | 2024-02-16 11:23 | XMS_ITS | Continuity of Care Document ---
Author Organization [facility] ter Address [address] [place] [address]- Care Team Providers Care Human Resources Operations Specialist Name Role Phone Braden AVILA, Jody James Primary Care Physician Encounter [facility] [place] Date(s): 04/07/20 - 04/08/[address] [address]- [facility] Discharge Disposition: A-D/C Home Attending Physician: Bebeto Conte MD Admitting Physician: Bebeto Conte MD Referring Physician: Bebeto Conte MD Allergies, Adverse Reactions, Alerts Substance Reaction Severity [...] Refills, Maintenance Start Date: 09/26/13 Status: Ordered oxyCODONE 5 mg oral tablet 5 mg, 1, tablet, By Mouth, Every 4 hours, PRN, for 3 days, for breakthrough pain. may take less than prescribed. do not drive while taking, # 12 tablet, Refills 0, Tot. Refills 0, Acute 04/10/20 16:16:00 EDT, Pain , Severe, 04/07/20 16:16:00 EDT, Prin... Start Date: 04/07/20 Stop Date: 04/10/20 Status: Ordered PARoxetine 20 mg oral tablet 20 mg, 1, tablet, By Mouth, Daily, # 30 tablet, Refills 0, Maintenance, 04/07/20 19:00:00 EDT Start Date: 04/07/20 Status: Ordered Problem List Condition Effective Dates Status Health Status Inform ant Gastric reflux(Confirmed) Active Procedures Procedure Date Related Diagnosis Body Site Status Removal of gastric band C ompleted Vital Signs Most recent to oldest [Reference Range]: 1 2 3 Weight 93 kg (04/07/20 1:46 PM) Oxygen Saturation [94-100 %] 97 % (04/08/20 7:00 AM) 95 % (04/08/20 5:00 AM) 95 % (04/07/20 10:52 PM) Pulse Rate [55-90 bpm] 75 bpm (04/08/20 7:00 AM) 79 bpm (04/08/20 5:00 AM) 90 bpm (04/07/20 10:52 PM) Blood Pressure [90-138/55-84 mm Hg] 115/83mm Hg (04/08/20 7:00 AM) 144/78mm Hg *H* (04/08/20 5:00 AM) 125/78mm Hg (04/07/20 10:52 PM) Respiratory Rate [16-30 br/min] 20 br/min (04/08/20 11:09 AM) 18 br/min (04/08/20 7:00 AM) 18 br/min (04/08/20 6:43 AM) Temperature [96.8-100.4 DegF] 97.4 DegF (04/08/20 7:00 AM) 97.6 DegF (04/08/20 5:00 AM) 97.6 DegF (04/07/20 10:52 PM) Liters per Minute 2 L/min (04/07/20 5:30 PM) 2 L/min (04/07/20 5:15 PM) 6 L/min (04/07/20 4:00 PM) Mode of Delivery (Oxygen) Room air (04/08/20 7:00 AM) Room air (04/08/20 5:00 AM) Room air (04/07/20 10:52 PM) Blood pressure sites Arm, right (04/08/20 7:00 AM) Arm, right (04/08/20 5:00 AM) Arm, right (04/07/20 10:52 PM) Temperature Route Oral (7/29/20 7:00 AM) Oral (04/08/20 5:00 AM) Oral (04/07/20 10:52 PM) Dry Weight 93 kg (04/07/20 1:46 PM) Weight Obtained Via Standing scale (04/07/20 1:46 PM) Dry Weight Obtained Via Standing scale (04/07/20 1:46 PM) Social History Social History Type Response Smoking Status Never (less than 100 in lifetime) entered on: 03/05/19 Sex
--- OUTSIDE RECORDS SUMMARY | 2024-02-16 11:23 | XMS_ITS | Continuity of Care Document ---
Author Organization [facility] Address [address] [place] [address]- Care Team Providers Care Regional Engineer Name Role Phone Braden AVILA, Jody James Primary Care Physician [place] [facility] 02/22[place]21 - 03/24/21 [facility] [address] [place] [address] Allergies, Adverse Reactions, Alerts Substance Reaction Severity [...] kit, 0 Refills, Maintenance, 01/27/21 12:29:00 EDT, [facility] #[id number], Partial fill upon patient request if the [...]
--- OUTSIDE RECORDS SUMMARY | 2024-02-16 11:23 | XMS_ITS | Continuity of Care Document ---
Author Organization [facility] Address Unknown Care Team Providers Care Manufacturing Tech Name Role Phone Braden AVILA, Jody James Primary Care Physician Encounter [facility] [place] Date(s): 01/07/22 - 04/01/22 [facility] Attending Physician: Jennifer Galarza Admitting Physician: Jennifer [...] kit, 0 Refills, Maintenance, 01/27/21 12:29:00 EDT, [email or web address] #[id number], Partial fill upon patient request if the [...]
--- OUTSIDE RECORDS SUMMARY | 2024-02-16 11:23 | XMS_ITS | Continuity of Care Document ---
Author Organization [facility] ter Address [address] [place] [address]- Care Team Providers Care Geriatric Nurse Practitioner Name Role Phone Braden AVILA, Jody James Primary Care Physician Encounter [facility] [place] Date(s): 02/23/21 - 02/23/[address] [address]- Discharge Disposition: A-D/C Home Attending Physician: Gabrielle Cope MD Admitting Physician: Gabrielle Cope MD Referring Physician: Gabrielle Cope MD Allergies, Adverse Reactions, Alerts Substance Reaction [...] kit, 0 Refills, Maintenance, 01/27/21 12:29:00 EDT, [facility] #[id number], Partial fill upon patient request if the prescription is for a schedule II opioid drug., 176mL x 2 per instructions, 170... Start Date: 01/27/21 Status: Ordered Problem List Condition Effective Dates Status Health Status Inform ant Gastric reflux(Confirmed) Active Procedures Procedure Date Related Diagnosis Body Site Status Colonoscopy 02/23/21 Completed Vital Signs Most recent to oldest [Reference Range]: 1 2 3 Height 173 cm (02/23/21 1:54 PM) Weight 89 kg (02/23/21 1:54 PM) Oxygen Saturation [94-100 %] 98 % (02/23/21 2:50 PM) 95 % (02/23/21 2:45 PM) 100 % (02/23/21 1:54 PM) Pulse Rate [55-90 bpm] 95 bpm *H* (02/23/21 1:54 PM) Body Mass Index [18.5-24.99] 29.74 *H* (02/23/21 1:54 PM) Blood Pressure [90-138/55-84 mm Hg] 166/89mm Hg *H* (02/23/21 2:50 PM) 153/75mm Hg *H* (02/23/21 2:45 PM) 160/91mm Hg *H* (02/23/21 1:54 PM) Respiratory Rate [16-30 br/min] 16 br/min (02/23/21 2:50 PM) 16 br/min (02/23/21 2:45 PM) 18 br/min (02/23/21 1:54 PM) Temperature [96.8-100.4 DegF] 98.0 DegF (02/23/21 1:54 PM) Mode of Delivery (Oxygen) Room air (02/23/21 2:50 PM) Room air (02/23/21 2:45 PM) Room air (02/23/21 1:54 PM) Blood pressure sites Arm, left (02/23/21 2:50 PM) Arm, left (02/23/21 2:45 PM) Arm, left (02/23/21 1:54 PM) Temperature Route Temporal (02/23/21 1:54 PM) Dry Weight 89 kg (02/23/21 1:54 PM) Social History Social History Type Response Smoking Status Never (less than 100 in lifetime) entered on: 03/05/19 Sex
--- OUTSIDE RECORDS SUMMARY | 2024-02-16 11:23 | XMS_ITS | Continuity of Care Document ---
Author Organization [facility] Address [address] [place] [address]- Care Team Providers Care Jewel Gauger Name Role Phone Braden AVILA, Jody James Primary Care Physician Encounter [facility] [place] Date(s): 02/09/22 - 03/17/22 [facility] [address] [address]- Attending Physician: Cristiano Villegas MD Admitting Physician: [...] kit, 0 Refills, Maintenance, 01/27/21 12:29:00 EDT, [facility] #[id number], Partial fill upon patient request if the [...]
--- OUTSIDE RECORDS SUMMARY | 2024-02-16 11:23 | XMS_ITS | Continuity of Care Document ---
Author Organization [facility] Address Unknown Care Team Providers Care Prefabricated Houses Trimmer Name Role Phone Braden AVILA, Jody James Primary Care Physician Encounter [facility] [place] Date(s): 02/15/22 - 03/17/22 [facility] Allergies, Adverse Reactions, Alerts No Known Allergies [...] kit, 0 Refills, Maintenance, 01/27/21 12:29:00 EDT, [facility] #[id number], Partial fill upon patient request if the [...]
--- OUTSIDE RECORDS SUMMARY | 2024-02-16 11:23 | XMS_ITS | Continuity of Care Document ---
Author Organization [facility] Address [address] [place] [address] [address] [place] [address]- Care Team Providers Care Recruitment Manager Name Role Phone Jesus Epps DO Primary Care Physician Encounter [facility] [place] Date(s): 04/27/20 - 05/04/[address] [place] [address] Encounter Diagnosis Gastric band malfunction(Discharge Diagnosis) - 04/27/20 Postop check(Discharge Diagnosis) - 04/27/20 Attending Physician: Juan Márquez Referring Physician: Braden AVILA , Jody James Allergies, Adverse Reactions, Alerts Substance Reaction Severity [...] Health Status Inform ant Gastric reflux(Confirmed) Active Diagnosis Diagnosis Type Effective Dates Health Status Clinical Service Informant Gastric band malfunction Discharge Diagnosis 04/27/20 Postop check Discharge Diagnosis 04/27/20 Vital Signs Most recent to oldest [Reference Range]: 1 Height 170.20 cm (04/27/20 3:08 PM) Pulse Rate [55-90 bpm] 91 bpm *H* (04/27/20 3:08 PM) Blood Pressure [90-138/55-84 mm Hg] 124/ 83mm Hg (04/27/20 3:08 PM) Respiratory Rate [16-30 br/min] 18 br/mi n (04/27/20 3:08 PM) Temperature [96.8-100.4 DegF] 96.5 DegF *L* (04/27/20 3:08 PM) Blood pressure sites Arm, left (04/27/20 3:08 PM) Temperature Route Temporal (04/27/20 3:08 PM) Social History Social History Type Response Smoking Status Never (less than 100 in lifetime) entered on: 03/05/19 Sex
--- OUTSIDE RECORDS SUMMARY | 2024-02-16 11:23 | XMS_ITS | Continuity of Care Document ---
Author Organization [facility] Address [address] [place] [address] [address] [place] [address]- Care Team Providers Care Titrator Name Role Phone Jesus Epps DO Primary Care Physician Encounter [facility] [place] Date(s): 05/04/20 - 06/03/[address] [place] [address]- [facility] Allergies, Adverse Reactions, Alerts Substance Reaction Severity [...]
--- OUTSIDE RECORDS SUMMARY | 2024-02-16 11:23 | XMS_ITS | Continuity of Care Document ---
Author Organization [facility] Address [address] [facility] [place] [address]- Care Team Providers Care Tool Maker Name Role Phone Bradne AVILA, Jody James Primary Care Physician Encounter 12/29/22 - 01/05/23 [facility] [address], [address] [place] [address]- Attending Physician: Jody Feliciano MD Admitting Physician: Jody Feliciano MD Referring Physician: Jody Feliciano MD Allergies, Adverse [...] kit, 0 Refills, Maintenance, 01/27/21 12:29:00 EDT, [facility] #[id number], Partial fill upon patient request if the prescription is for a schedule II opioid drug., 176mL x 2 per instructions, 170... Start Date: 01/27/21 Status: Ordered Problem List Condition Confirmation Course Effective Dates Status [facility] Informant Gastric reflux Confirmed Active Results Radiology Reports * Exam Date Time Procedure Performing Provider Status 12/29/22 4:29 PM MM Digital Mammo Screening Amada Reid; Jeovanny (Verified) Notes: (MM Digital Mammo Screening) Reason For Exam: z12.31 screening RESULT: MM Digital Mammo Screening PROCEDURE: MM Digital Mammo Screening INDICATION: Screening. No known palpable abnormalities. COMPARISON: Prior outside mammograms from [facility] dating back to 07/26/2017. TECHNIQUE: Full-field digital CC and MLO 3D tomosynthesis images of both breasts were acquired. Computer-aided detection (CAD) was utilized in the interpretation of this study. DENSITY: The breast tissue is almost entirely fatty. FINDINGS: No suspicious masses, suspicious microcalcifications, or areas of architectural distortion are seen in either breast to suggest malignancy. IMPRESSION: No mammographic evidence of malignancy. RECOMMENDATION: Annual mammographic screening BI-RADS: 1 (Negative) Lay letter mailed to patient WSN: [id number] Ordering Physician: Jody Feliciano MD Dictated By: Tuyet Hansen MD Dictated Date/Time: 12/29/22 4:49 pm Reviewed By: Tuyet Hansen MD Signed By: Tuyet Hansen MD Signed Date/Time: 12/29/22 4:49 pm Transcribed By: MEIR Salesforce Trainer Date/Time: 12/29/22 4:47 pm Birads: Social History Social History Type Response Smoking Status Never (less than 100 in lifetime) entered on: 03/05/19 Sex MG Breast Screening * BHSPowerscguero , CIS S: TRANSCRIBE Tuyet Hansen MD: VERIFY Event Display: Result: Authored Date: [id number] PROCEDURE: MM Digital Mammo Screening INDICATION: Screening. No known palpable abnormalities. COMPARISON: Prior outside mammograms from [facility] dating back to 07/26/2017. TECHNIQUE: Full-field digital CC and MLO 3D tomosynthesis images of both breasts were acquired. Computer-aided detection (CAD) was utilized in the interpretation of this study. DENSITY: The breast tissue is almost entirely fatty. FINDINGS: No suspicious masses, suspicious microcalcifications, or areas of architectural distortion are seen in either breast to suggest malignancy. IMPRESSION: No mammographic evidence of malignancy. RECOMMENDATION: Annual mammographic screening BI-RADS: 1 (Negative) Lay letter mailed to patient WSN: [id number] Ordering Physician: Jody Feliciano MD Dictated By: Tuyet Hansen MD Dictated Date/Time: 12/29/22 4:49 pm Reviewed By: Tuyet Hansen MD Signed By: Tuyet Hansen MD Signed Date/Time: 12/29/22 4:49 pm Transcribed By: MEIR Salesforce Trainer Date/Time: 12/29/22 4:47 pm Birads: Patient Care team information Care Team Personnel Name: Jody Feliciano MD Position: Reference Physician Member Role: PCP Address: Address: [address] [place] [address]- Care Team Related Persons Name: EDDIE GRAYSON Address: home [address] [place] [id number]
--- OUTSIDE RECORDS SUMMARY | 2024-02-16 11:23 | XMS_ITS | Continuity of Care Document ---
Author Organization [facility] Address [address] [place] [address] [address] [place] [address]- Care Team Providers Care Engrosser Name Role Phone Jesus Epps DO Primary Care Physician Encounter [facility] [place] Date(s): 02/14/20 - 02/21/[address] [place] [address]- [facility] Encounter Diagnosis Gastric reflux(Discharge Diagnosis) - 02/14/20 Attending Physician: Grant Abad MD Referring Physician: Jesus Epps DO Allergies, Adverse Reactions, Alerts Substance Reaction Severity Status NKA Active Medications NuLYTELY Lemon Tel[place] oral powder for reconstitution 240 mL, By Mouth, Every 10 minutes, # 4,000 mL, 0 Refills, Maintenance, 04/27/16 12:15:17, REC Powder Start Date: 04/27/16 Status: Ordered omeprazole 20 mg oral enteric coated capsule 1 capsule = 20 mg, By Mouth, Daily, 0 Refills, Maintenance Start Date: 09/26/13 Status: Ordered Problem List Condition Effective Dates Status Health Status Inform ant Gastric reflux(Confirmed) Active Diagnosis Diagnosis Type Effective Dates Health Status Cl inical Service Informant Gastric reflux Discharge Diagnosis 02/14/20 Vital Signs Most recent to oldest [Reference Range]: 1 Height 170.20 cm (02/14/20 4:14 PM) Pulse Rate [55-90 bpm] 80 bpm (02/14/20 4:14 PM) Blood Pressure [90-138/55-84 mm Hg] 128/ 83mm Hg (02/14/20 4:14 PM) Temperature [96.8-100.4 DegF] 98.6 DegF (02/14/20 4:14 PM) Blood pressure sites Arm, left (02/14/20 4:14 PM) Temperature Route Temporal (02/14/20 4:14 PM) Social History Social History Type Response Smoking Status Never (less than 100 in lifetime) entered on: 03/05/19 Sex
--- OUTSIDE RECORDS SUMMARY | 2024-02-16 11:23 | XMS_ITS | Continuity of Care Document ---
Author Organization [facility] Address [address] [place] [address] [address] [place] [address]- Care Team Providers Care Manager Of Global Name Role Phone Supriya Jesus Vivien Primary Care Physician [phone] Encounter [place] Date(s): 02/19/20 - 02/26/[address] [place] [address]- [facility] Encounter Diagnosis Gastric reflux(Discharge Diagnosis) - 02/19/20 Attending Physician: Bebeto Conte MD Referring Physician: Grant Abad MD Allergies, Adverse Reactions, Alerts Substance Reaction Severity Status NKA Active Medications NuLYTELY Lemon [place] oral powder for reconstitution 240 mL, By [...] inical Service Informant Gastric reflux Discharge Diagnosis 02/19/20 Vital Signs Most recent to oldest [Reference Range]: 1 Height 170.20 cm (02/19/20 11:12 AM) Weight 93.9 kg (02/19/20 11:12 AM) Pulse Rate [55-90 bpm] 84 bpm (02/19/20 11:12 AM) Body Mass Index [18.5-24.99] 32.42 *>HHI* (02/19/20 11:12 AM) Blood Pressure [90-138/55-84 mm Hg] 141/ 84mm Hg *H* (02/19/20 11:12 AM) Respiratory Rate [16-30 br/min] 18 br/mi n (02/19/20 11:12 AM) Temperature [96.8-100.4 DegF] 98.3 DegF (02/19/20 11:12 AM) Blood pressure sites Arm, left (02/19/20 11:12 AM) Temperature Route Temporal (02/19/20 11:12 AM) Weight Obtained Via Standing scale (02/19/20 11:12 AM) Social History Social History Type Response Smoking Status Never (less than 100 in lifetime) entered on: 03/05/19 Sex
--- OUTSIDE RECORDS SUMMARY | 2024-02-16 11:23 | XMS_ITS | Continuity of Care Document ---
Author Organization [facility] Address [address] [facility], [address], [address] [place] [address]- Care Team Providers Care Retail General Manager Name Role Phone Braden AVILA, Jody James Primary Care Physician Encounter [facility] [place] [facility] [id number] Date(s): 04/26/22 - 05/26/22 [facility] [address] [facility], [address] Floor, [address] [place] [address]- Attending Physician: Tono Peñaloza Admitting Physician: AdmTono valentino Referring Physician: Admtr ArJason Allergies, Adverse Reactions, Alerts No Known Allergies [...] kit, 0 Refills, Maintenance, 01/27/21 12:29:00 EDT, [facility] #[id number], Partial fill upon patient request if the [...] Braden AVILA , Jody James Address: [address] [place], [place] [address]
== END 2024-02-15 16:30 | disposition home or self-care (01) ==
PROVIDERS: PCP Internal Medicine; Visit Provider Nurse Practitioner Primary Care
DX: E66.9 Obesity, unspecified (principal); Z68.36 Body mass index [BMI] 36.0-36.9, adult
CPT/HCPCS: 99213

== ENCOUNTER 2024-04-05 08:26 | Outpatient (AMB) | payer BC, SELFPAY ==
--- NOTE | 2024-04-05 08:42 | MHC.PC.OV ---
Intake Visit Reasons: Iphone TH Visit Weight Check/meds Allergies No Known Allergies Allergy (Unknown, Verified 04/05/24 09:55) N/A Medication List - Last Reconciled 04/05/24 by Jody Feliciano MD aspirin (Adult Low Dose Aspirin) 81 mg PO DAILY bupropion HCl XL 150 mg PO QAM lisinopril 10 mg PO DAILY omeprazole 20 mg PO BID ondansetron HCl 4 mg PO Q12H PRN semaglutide (weight loss) (Wegovy) 0.25 mg (0.5 mL) subcut QWEEK sertraline 50 mg PO DAILY zolpidem 10 mg PO BEDTIME PRN Tobacco use date assessed: 10/19/23 Dental Screening Dental Screen Date: 10/19/23 HPI Iphone TH Visit Weight Check/meds HPI Details 64-year-old lady here today for follow-up regarding her weight loss after starting we go 0.25 mg once a week a month ago. She has been tolerating medication well has had 1 bout of diarrhea which lasted only for a day, has been exercising regularly and has been following a healthy diet. She has lost about 6 lb since starting the medication.. [facility] Medical History (Updated 04/05/24 @ 10:11 by Jody Feliciano MD) Hyperlipidemia Cervical spondylosis with myelopathy May-Thurner syndrome Left lumbosacral radiculopathy Essential hypertension Generalized anxiety disorder History of empyema of pleura Insomnia GERD (gastroesophageal reflux disease) History of ADHD Mild intermittent asthma in adult without complication Surgical History History of colonoscopy History of thoracentesis H/O laparoscopic adjustable gastric banding Hx of cholecystectomy H/O laparoscopic adjustable gastric banding Family History Father Essential hypertension Mental health disorder Mother No problems noted. Daughter No problems noted. Social History Housing: Condominium Alcohol intake: never Patient Tobacco Use Status: Never used Tobacco e-Cigarette/Vaping Use: Never Used service: No Current occupational status: retired Cognitive needs: No Hearing needs: No Vision needs: Yes Questionnaire Thrive Questionnaire Date Thrive assessed: 10/19/23 GILLIAN-7 AMB Questionnaire GILLIAN-7 Date GILLIAN - 7 assessed: 10/19/23 Source: Developed by Drs. Sidney Patel, Maeve Rahman, Ralph Sanz and colleagues, with an educational pedro from [employer]. Review of Systems Const Denies headache(s) and Denies weakness Eyes Denies change in vision ENT Denies dizziness, Denies headache(s), Denies nasal congestion and Denies nasal discharge Card Denies chest pain, Denies lightheadedness, Denies palpitations and Denies dyspnea Resp Denies chest congestion, Denies cough, Denies dyspnea and Denies wheezing GI Denies abdominal pain and Denies change in bowel habits Denies urinary frequency, Denies dysuria and Denies urinary urgency Musc Reports no additional complaints Skin/Breast Denies breast pain, Denies breast mass and Denies rash Neuro Denies dizziness, Denies headache(s) and Denies weakness Psych Reports no additional complaints Endo Denies polydipsia, Denies polyuria and Denies palpitations William/Lymph Reports no additional complaints Aller/Immun Denies seasonal rhinorrhea and Denies wheezing Physical exam (Primary Care) Tobacco/Smoking Status: Tobacco use Status Tobacco use date assessed 10/19/23 04/05/24 08:44 Patient Tobacco Use Status Never used Tobacco 04/05/24 08:44 e-Cigarette/Vaping Use Never Used 04/05/24 08:44 Thrive Assessment: Date of Thrive Assessment Date Thrive assessed 10/19/23 04/05/24 08:44 Telehealth Telehealth Telehealth Platform: [facility] Location of provider rendering services: practice address Location of patient: address on file Patient Identification confirmed using: Name, : Yes Telehealth method: video Patient verbally consented to treatment: Yes Patient verbally consented to billing insurance company: Yes Patient informed of any privacy concerns related to visit: Yes Minutes spent on Phone/Video with Pt.: 15 Assessment and Plan Assessment & Plan (1) Obesity (BMI 35.0-39.9 without comorbidity): Comment: wegovy weekly injection. Patient has exhausted several options including dietary counseling, bariatric surgery, exercise, diet. Patient has been educated on the side effects of these medications. Patient has no history thyroid cancer or thyroid disorder.Will start patient on Code(s): E66.9 - Obesity, unspecified Plan: Started on wegovy 0.25 mg weekly injection. Dose of Wegovy was increased to 0.5 mg injected subcutaneously once a week.. Patient has exhausted several options including dietary counseling, bariatric surgery, exercise, diet.Shet has no history thyroid cancer or thyroid disorder. Has lost about 6 lb since starting the medication a month ago, tolerating medication well. She has been educated on the side effects of these medications. Continue with adherence to healthy eating habits and do regular exercise. Will see her back for follow-up in 05/2024 Orders: Orders Hemoglobin A1c 05/12/24 E66.9 - Obesity, unspecified, E78.5 - Hyperlipidemia, unspecified, F41.1 - Generalized anxiety disorder, I10 - Essential (primary) hypertension TSH reflex Free T4 05/12/24 E66.9 - Obesity, unspecified, E78.5 - Hyperlipidemia, unspecified, F41.1 - Generalized anxiety disorder, I10 - Essential (primary) hypertension Lipid Panel 05/12/24 E66.9 - Obesity, unspecified, E78.5 - Hyperlipidemia, unspecified, F41.1 - Generalized anxiety disorder, I10 - Essential (primary) hypertension Comprehensive [place]. Panel Fast 05/12/24 E66.9 - Obesity, unspecified, E78.5 - Hyperlipidemia, unspecified, F41.1 - Generalized anxiety disorder, I10 - Essential (primary) hypertension Medications: Changed From semaglutide (weight loss) (Wegovy) administer weeks 1 through 4 of therapy 0.25 mg (0.5 mL) subcut QWEEK 2 mL 0RF E66.9 - Obesity, unspecified To semaglutide (weight loss) administer weeks 1 through 4 of therapy 0.25 mg (0.25 mL) subcut QWEEK 2 mL 1RF E66.9 - Obesity, unspecified Coding Level of Care Code Tele Est Pt Level 4 (63427) Diagnoses Obesity (BMI 35.0-39.9 without comorbidity) E66.9
== END 2024-04-05 17:42 | disposition home or self-care (01) ==
LOC: HO.HMGC 08:26
PROVIDERS: PCP Internal Medicine; Visit Provider Internal Medicine
DX: E66.9 Obesity, unspecified (principal)
CPT/HCPCS: 99214

== ENCOUNTER → 2024-07-08 14:02 | Outpatient (BNVA) | payer BC, SELFPAY | PROVIDERS: PCP Internal Medicine; Visit Provider Internal Medicine ==

== ENCOUNTER 2024-08-06 11:37 | Outpatient (REF) | payer BC, SELFPAY ==
[2024-08-06 16:53] LABS: Estimated Average Glucose 103 mg/dL; Hemoglobin A1C 129.7999 umol/L; Hemoglobin A1c % 5.2 % (<6.0); Total Hemoglobin (HGBA1C) 3890.8091 umol/L
[2024-08-06 17:00] LABS: Alanine Aminotransferase 39 U/L (0-31); Albumin Level 4.2 g/dL (3.5-5.0); Alkaline Phosphatase 84 U/L (39-117); Anion Gap 12 (12-20); Aspartate Amino Transferase 26 U/L (5-31); Bilirubin Total 0.3 mg/dL (0.0-1.0); Blood Urea Nitrogen 18 mg/dL (9-16); Calcium 9.9 mg/dL (8.4-10.2); Carbon Dioxide 25 mmol/L (22-29); Chloride 104 mmol/L (96-108); Cholesterol 186 mg/dL (<200); Estimated Glomerular Filt Rate > 60; Glucose Fasting 83 mg/dL (60-99); HDL Cholesterol 54 mg/dL (>40); LDL Cholesterol Calculated 109 mg/dL (<100); Potassium 4.3 mmol/L (3.3-5.1); Sodium 137 mmol/L (135-145); Total Protein 7.8 g/dL (6.5-8.0); Triglycerides 118 mg/dL (<150)
[2024-08-06 17:06] LABS: TSH reflex Free T4 1.19 uIU/mL (0.32-4.0)
== END 2024-08-06 11:38 | disposition home or self-care (01) ==
LOC: HO.HMGCLDS 11:37
PROVIDERS: PCP Internal Medicine; Visit Provider Internal Medicine
DX: E66.9 Obesity, unspecified (principal); Z68.31 Body mass index [BMI] 31.0-31.9, adult; I10 Essential (primary) hypertension; F41.1 Generalized anxiety disorder; E78.5 Hyperlipidemia, unspecified; Z79.899 Other long term (current) drug therapy
CPT/HCPCS: 36415; 80053; 80061; 83036; 84443; 96127

== ENCOUNTER 2024-08-06 11:37 | Outpatient (AMB) | payer BC, SELFPAY ==
[2024-08-06 12:41] VITALS: BP 122/80; PULSE 83; O2SAT 98; BMI 31.6
--- NOTE | 2024-08-06 12:41 | A.OFFPC_ITS ---
Vital Signs 08/06/24 12:41 Height 5 ft 8 in Weight 208 lb BMI 31.6 BP 122/80 Blood Pressure Location Rt brachial Position Sitting Pulse 83 Pulse Source Pulse Oximeter Pulse Oximetry (%) 98 Oxygen Delivery Method Room Air Intake Visit Reasons: Follow up medication Intake Note: Pt is here today for her medication f/u Allergies No Known Allergies Allergy (Unknown, Verified 08/06/24 12:59) N/A Medication List - Last Reconciled 08/06/24 by Jody Feliciano MD aspirin (Adult Low Dose Aspirin) 81 mg PO DAILY bupropion HCl XL 150 mg PO QAM lisinopril 10 mg PO DAILY omeprazole 20 mg PO BID semaglutide (weight loss) (Wegovy) 2.4 mg (0.75 mL) subcut QWEEK 30 days sertraline 50 mg PO DAILY zolpidem 10 mg PO BEDTIME PRN Tobacco use date assessed: 08/06/24 Dental Screening Dental Screen Date: 08/06/24 Did you have a dental visit in the last 12 months?: Yes Did you have a dental problem in the last 6 months where you did not have access to dental care?: Yes Was dental information given to patient?: Patient has dentist HPI Follow up medication HPI Details 64-year-old female presenting today for follow-up on her weight management after starting Wegovy. The patient began treatment with Wegovy in March. Initiation of this medication was accompanied by a weight reduction from a peak of 237 pounds in February to 219 pounds by April, subsequently reaching 209 pounds in June, and 208 pounds in July. The patient reports weight stab ilization since then, describing it as a plateau phase. This medication regimen is supported by dietary modifications and a regular exercise routine. The patient reports notable improvement in general well-being with Wegovy, alongside a side effect of intermittent nausea, without cramping or digestive changes such as constipation or diarrhea. Dietary adjustments including a bland diet are employed to mitigate nausea. There are no other significant gastrointestinal symptoms The patient also denies any history of pancreatitis or thyroid cancer. In relation to hypertension, the patient is managed on lisinopril. There is a noted history of gastroesophageal reflux disease, and the patient currently faces challenges with prescription coverage for omeprazole. [facility] Medical History Hyperlipidemia Cervical spondylosis with myelopathy May-Thurner syndrome Left lumbosacral radiculopathy Essential hypertension Generalized anxiety disorder History of empyema of pleura Insomnia GERD (gastroesophageal reflux disease) History of ADHD Mild intermittent asthma in adult without complication Surgical History History of colonoscopy History of thoracentesis H/O laparoscopic adjustable gastric banding Hx of cholecystectomy H/O laparoscopic adjustable gastric banding Family History Father Essential hypertension Mental health disorder Mother No problems noted. Daughter No problems noted. Social History Housing: Condominium Alcohol intake: never Patient Tobacco Use Status: Never used Tobacco e-Cigarette/Vaping Use: Never Used service: No Current occupational status: retired Cognitive needs: No Hearing needs: No Vision needs: Yes Questionnaire PHQ-9 Over the last 2 weeks, how often have you been bothered by any of the following problems? 1. Little interest or pleasure in doing things: not at all 2. Feeling down, depressed, or hopeless: not at all 3. Trouble falling or staying asleep, or sleeping too much: not at all 4. Feeling tired or having little energy: not at all 5. Poor appetite or overeating: not at all 6. Feeling bad about yourself - or that you are a failure or have let yourself or your family down: not at all 7. Trouble concentrating on things, such as reading the newspaper or watching television: not at all 8. Moving or speaking so slowly that other people could have noticed. Or the opposite - being so fidgety or restless that you have been moving around a lot more than usual: not at all 9. Thoughts that you would be better off or of hurting yourself in some way: not at all Total score: 0 Depression Screening Interpretation: Negative Depression Screening Done: Yes 10388 - PHQ-9 Billing: Yes Source: Developed by Drs. Sidney Patel, Maeve Rahman, Ralph Sanz and colleagues, with an educational pedro from [employer]. Thrive Questionnaire Date Thrive assessed: 10/19/23 I am a: Patient What is your living situation today?: I have a steady place to live Within the past 12 months, did the food you bought not last and you didn't have the money to get more?: Never true Within the past 12 months, did you worry whether your food would run out before you got money to buy more?: Never true Do you have trouble paying for medicines?: No Do you have trouble getting transportation to medical appointments?: No Do you have trouble paying your heating and electricity bill?: No Do you have trouble taking care of your child, family member or friend?: No Do you have trouble with day-to-day activities such as bathing, preparing meals, shopping, managing finances, etc.?: No Are you currently unemployed and looking for a job?: No Are you interested in more education?: No Please select the resources that you would like help with: None Currently or been in a relationship where the following occur: I choose not to answer THRIVE Score: 0 AUDIT C Alcohol Use Questionnaire (AUDIT-C) 1. How often do you have a drink containing alcohol?: Never Total Score: 0 GILLIAN-7 AMB Questionnaire GILLIAN-7 Date GILLIAN - 7 assessed: 10/19/23 Feeling nervous, anxious, or on edge: 0 = Not at all Not being able to stop or control worryin = Not at all Worrying too much about different things: 0 = Not at all Trouble relaxin = Not at all Being so restless that it is hard to sit still: 0 = Not at all Becoming easily annoyed or irritable: 0 = Not at all Feeling afraid as if something awful might happen: 0 = Not at all Total GILLIAN-7 score (0-4 normal; 5-9 mild; 10-14 moderate; 15-21 severe): 0 Source: Developed by Drs. Sidney Patel, Maeve Rahman, Ralph Sanz and colleagues, with an educational pedro from [employer]. GILLIAN-7 Assessment Billing GILLIAN-7 Assessment Tool: GILLIAN-7 Assessment 33344 Review of Systems Const Denies headache(s) and Denies weakness Eyes Denies change in vision ENT Denies dizziness, Denies headache(s), Denies nasal congestion and Denies nasal discharge Card Denies chest pain, Denies lightheadedness, Denies palpitations and Denies dyspnea Resp Denies chest congestion, Denies cough, Denies dyspnea and Denies wheezing GI Denies abdominal pain and Denies change in bowel habits Denies urinary frequency, Denies dysuria and Denies urinary urgency Musc Reports no additional complaints Skin/Breast Denies breast pain, Denies breast mass and Denies rash Neuro Denies dizziness, Denies headache(s) and Denies weakness Psych Reports no additional complaints Endo Denies polydipsia, Denies polyuria and Denies palpitations William/Lymph Reports no additional complaints Aller/Immun Denies seasonal rhinorrhea and Denies wheezing Physical exam (Primary Care) Vital Signs: Last Vital Signs Pulse 83 08/06/24 12:41 BP 122/80 08/06/24 12:41 Pulse Ox 98 08/06/24 12:41 Oxygen Delivery Method Room Air 08/06/24 12:41 BMI result Body Mass Index 31.6 Tobacco/Smoking Status: Tobacco use Status Tobacco use date assessed 08/06/24 08/06/24 12:48 Patient Tobacco Use Status Never used Tobacco 08/06/24 12:42 e-Cigarette/Vaping Use Never Used 08/06/24 12:42 PHQ-9: PHQ-9 Score PHQ-9: Total score 0 08/06/24 13:04 Depression Screening Interpretation: Negative Thrive Assessment: Date of Thrive Assessment Date Thrive assessed 10/19/23 08/06/24 12:42 Currently or been in a relationship where the following occur: I choose not to answer Const Other: Alert oriented x3, no acute cardiorespiratory distress, ambulatory normal gait Neck Other: Supple with no lymphadenopathy, thyroid gland nonpalpable Resp Effort & Inspection: normal respiratory effort and able to speak in complete sentences Auscultation: clear to auscultation bilaterally Cardio Other: S1-S2 present regular rate and rhythm GI Other: Normal bowel sounds, soft, slight tenderness on deep palpation over right upper quadrant, no mass, no rebound or guarding Back/Spine/Pelvis Back: No back tenderness Skin General skin exam: no rashes or lesions noted Neuro General: gait normal, tone normal and No moves all extremities Extrem General: Yes full ROM, Yes no joint enlargement and Yes no pedal edema Psych Appearance: grossly normal and well kempt Speech and movement: Normal speech and movement present Affect: normal affect Attitude: cooperative Coding Level of Care Code Est Pt Level 4 (48068) Diagnoses Obesity (BMI 35.0-39.9 without comorbidity) E66.9 Essential hypertension I10 Generalized anxiety disorder F41.1 Additional Codes PHQ-9 - 36425 - PHQ-9 Billing: Yes ([id number]) GILLIAN-7 Assessment Billing - GILLIAN-7 Assessment Tool: GILLIAN-7 Assessment 99814 ([id number]) Assessment & Plan Assessment & Plan (1) Obesity (BMI 35.0-39.9 without comorbidity): Comment: Code(s): E66.9 - Obesity, unspecified Category: Medical (2) Essential hypertension: Code(s): I10 - Essential (primary) hypertension Category: Medical (3) Generalized anxiety disorder: Code(s): F41.1 - Generalized anxiety disorder Category: Medical Plan - Obesity: Continue Wegovy for weight management. Encourage adherence to diet and exercise routines. Monitor for any adverse effects, including vision changes. - Hypertension: Continue on same dose of lisinopril Blood pressure monitoring to ensure optimal control. Reinforced importance of following a low-salt diet and learn how to manage stress - Hyperlipidemia: Schedule follow-up lab tests to assess cholesterol and lipid profile. - Overall wellness: Confirm upcoming physical examination and continue planned health maintenance screenings, such as lipid profile, renal, hepatic function tests, and thyroid function. Confirm the completion of ordered lab work prior to the next appointment.. - Keep scheduled physical and follow-up appointments for comprehensive evaluation -anxiety stable controlled on bupropion, refill sent Patient was informed and verbally consented to the use of an ambient scribe for clinic note documentation during this visit. Medications: Refilled bupropion HCl XL Local fill 150 mg PO QAM 90 tabs 1RF semaglutide (weight loss) (Wegovy) 2.4 mg (0.75 mL) subcut QWEEK 3 mL 5RF 30 days lisinopril Local fill only 10 mg PO DAILY 90 tabs 2RF
== END 2024-08-06 16:12 | disposition home or self-care (01) ==
PROVIDERS: PCP Internal Medicine; Visit Provider Internal Medicine
DX: I10 Essential (primary) hypertension (principal); E66.811 Obesity, class 1; F41.1 Generalized anxiety disorder; Z68.31 Body mass index [BMI] 31.0-31.9, adult

== ENCOUNTER 2024-11-20 13:18 | Outpatient (REF) | payer BC, SELFPAY ==
--- OUTSIDE RECORDS SUMMARY | 2024-11-20 17:23 | XMS_ITS | Encounter Summary ---
Author Organization [facility] Address [address] [place] [address] Care Team Providers Care Sailor Name Role Phone Jody Feliciano MD Primary Care Provider Encounter Details Date Type Department Care Team (Late st Contact Info) Description 05/24/2023 11:53 AM EDT Hospital Encounter [facility] [address] [place] [phone] Robert Huffman MD [address] [place] [address] Social History Tobacco Use Types Packs/Day Years [...] on filedocumented in this encounter Care Teams Sailor Relationship Specialty Start Date End Date Jody Feliciano MD [address] [place] [address] PCP - General Internal Medicine 05/24/23 documented as of this encounter
--- OUTSIDE RECORDS SUMMARY | 2024-11-20 17:23 | XMS_ITS | Clinical Summary ---
Author Organization [facility] Address [address] [place] [address] Care Team Providers Care Volleyball Assistant Coach Name Role Phone Jody Feliciano MD Primary Care Provider [phone] Allergies No known active allergies Medications Medication [...] age to complete this topic Care Teams Volleyball Assistant Coach Relationship Specialty Start Date End Date Jody Feliciano MD [address] [place] [address] PCP - General Internal Medicine 05/24/23
--- OUTSIDE RECORDS SUMMARY | 2024-11-20 17:23 | XMS_ITS | Clinical Summary ---
Author Organization [facility] [address] [facility] Address [address] [place] [address] Phone Care Team Providers Care Aircraft Systems Technician Name Role Phone Jody Feliciano MD Primary Care Provider Allergies No known active allergies Medications clindamycin (CLEOCIN T) 1 % external solution Apply 1 Application topically 2 (two) times a day. 0 Active PARoxetine (PAXIL) 40 mg tablet Take 40 mg by mouth every morning. Active OMEPRAZOLE ORAL by Does not apply route. Active Active Problems Problem Noted Date Diagnosed Date Depression 05/24/2011 GERD (gastroesophageal reflux disease) 1 Surgical History Surgery Date Site/Laterality Comments LAPAROSCOPIC GASTRIC BANDING 06 PROCEDURE: LAP ADJUSTABLE GASTRIC BAND CHOLECYSTECTOMY 03 PROCEDURE: HISTORICAL CHOLECYSTECTOMY ENDOMETRIAL ABLATION 08 PROCEDURE: [facility] ENDOMETRIAL ABLTJ THERMAL W/O HYSTEROSCOPIC GUID OTHER SURGICAL HISTORY 10/2014 PROCEDURE: [place] EXTRAPLEURAL ENUCLEATION EMPYEMA EMPYEMECTOMY Medical History Medical History Date Comments Depression DX:Depression GERD (gastroesophageal reflux disease) DX:GERD (gastroesophageal reflux disease) Infertility, female DX:Infertili ty, female; COMMENT: IUI Family History Medical History Relation Name Comments Colon cancer Maternal Grandmother early 6 0's Colon cancer Paternal Grandfather early 6 0's Other: hodgkins Sister at age 40 Breast cancer Neg Hx Cervical cancer Neg Hx Ovarian cancer Neg Hx Pancreatic cancer Neg Hx Uterine cancer Neg Hx Relation Name Status Comments Maternal Grandmother Paternal Grandfather Sister Social History Tobacco Use Types Packs/Day Years Used Date Smoking Tobacco: Never Smokeless Tobacco: Never Alcohol Use Standard Drinks/Week Comments Yes 0 (1 standard drink = 0.6 oz pur e alcohol) Comments Unknown Sex and Gender Information Value Date Recorded Sex Assigned at Not on file Legal Sex Female 2:01 AM EST Gender Identity Not on file Sexual Orientation Not on file Obstetrics History Plan of Treatment Upcoming Encounters Date Type Department Care Team (Late st Contact Info) Description 12/30/2024 2:00 PM EDT Office Visit Internal Medicine - [place] [address] [place] [address] Ivanna Hernández PA [address] [place] [address] 01/17/2025 3:30 PM EDT Office Visit Obstetrics and Gynecology - [place] [address] [place] [address] Mariah Wagner, [facility] [address] [place] [address] Health Maintenance Due Date Last Done Comments DTaP,Tdap,and Td Vaccines (1 - Tdap) 1981 Pneumococcal Vaccine: 50+ Years (1 of 1 - PCV) 2012 Zoster Vaccines (1 of 2) 2012 Cervical Cancer Screening: Pap Smear 01/07/2018 01/07/2015 Colorectal Cancer Screening: Colonoscopy 08/20/2022 Depression Screening 08/20/2022 HIV Screening 08/20/2022 Hepatitis C Screening 08/20/2022 Social Influencers of Health Screening 08/20/2022 Breast Cancer Screening 04/27/2023 04/27/20 21, 02/21/2019, 08/01/2017, Additional history exists COVID-19 Vaccine ( season) 2024 Influenza Vaccine (#1) 2024 RSV Immunization Patients 60+ Years Old (1 - 1-dose 75+ series) 2037 HIB Vaccines Aged Out No longer eligi ble based on patient's age to complete this topic HPV Vaccines Aged Out No longer eligi ble based on patient's age to complete this topic Hepatitis A Vaccines Aged Out No long er eligible based on patient's age to complete this topic Hepatitis B Vaccines Aged Out No long er eligible based on patient's age to complete this topic IPV Vaccines Aged Out No longer eligi ble based on patient's age to complete this topic MMR Vaccines Aged Out No longer eligi ble based on patient's age to complete this topic Meningococcal ACWY Vaccine Aged Out N o longer eligible based on patient's age to complete this topic Meningococcal B Vacine Aged Out No lo nger eligible based on patient's age to complete this topic Pneumococcal Vaccine: Pediatrics (0 to 5 Years) and At-Risk Patients (6 to 64 Years) Aged Out No longer eligible based on patient's age to complete this topic RSV Immunization Patients Under 20 months Aged Out No longer eligible based on patient's age to complete this topic Varicella Vaccines Aged Out No longer eligible based on patient's age to complete this topic Procedures Procedure Name Priority Date/Time Associated Diagnosis Comments SCREENING MAMMOGRAPHY BI 2-VIEW BREAST INC CAD Routine 04/27/2021 3:47 PM EDT Encounter for screening mammogram for malignant neoplasm of breast HM PAP SMEAR Routine 01/07/2015 from Last 3 Months or Most Recently Relevant to Health Maintenance Results * SCREENING MAMMOGRAPHY BI 2-VIEW BREAST INC CAD (04/27/2021 3:47 PM EDT) Anatomical Region Laterality Modality Radiographic Smiley ging 02/21/2019 7:27 PM EDT Narrative 04/28/2021 9:01 AM EDT This is a summary report. The complete report is available in the patient's medical record. If you cannot access the medical record, please contact the sending organization for a detailed fax or copy. Full field digital screening mammography, using both 2D and tomosynthesis, reviewed with CAD and compared to previous. ??The breasts are composed mostly of fatty tissue. ??No suspicious mass, architectural distortion or suspicious calcifications are identified. IMPRESSION: : No mammographic evidence of malignancy. BIRADS 1-Negative; N. 5 year breast cancer risk assessment 2.1 % Lifetime breast cancer risk assessment 11.2 % Breast cancer risk category Low (<15%) Procedure Note Keith Roberto MD - 08/30/2022 This is a summary report. The complete report is available in thepatient's medical record. If you cannot access the medical record, pleasecontact the sending organization for a detailed fax or copy. Full field digital screening mammography, using both 2D and tomosynthesis,reviewed with CAD and compared to previous. The breasts are composedmostly of fatty tissue. No suspicious mass, architectural distortion orsuspicious calcifications are identified. IMPRESSION: : No mammographic evidence of malignancy. BIRADS 1-Negative; N. 5 year breast cancer risk assessment 2.1 % Lifetime breast cancer risk assessment 11.2 % Breast cancer risk category Low (<15%) Jody Feliciano MD IMG XR PROCEDURES Final Res ult * Pap Smear (01/07/2015) Pap smear NEGATIVE, ABSTRACTED Historical Provider MD HEALTH MAINTENANCE Final Result from Last 3 Months or Most Recently Relevant to Health Maintenance Insurance MEDICARE [facility] Care Teams Aircraft Systems Technician Relationship Specialty Start Date End Date Jody Feliciano MD [address] [place] [address] PCP - General 02/26/24
== END 2024-11-20 13:19 | disposition home or self-care (01) ==
LOC: HO.HMGCLDS 13:18
PROVIDERS: PCP Internal Medicine; Visit Provider Internal Medicine
DX: Z00.01 Encounter for general adult medical examination with abnormal findings (principal); N20.0 Calculus of kidney; R10.9 Unspecified abdominal pain; R39.15 Urgency of urination; K21.9 Gastro-esophageal reflux disease without esophagitis; F51.01 Primary insomnia; F41.1 Generalized anxiety disorder; I10 Essential (primary) hypertension; E66.9 Obesity, unspecified; Z68.30 Body mass index [BMI] 30.0-30.9, adult; Z71.3 Dietary counseling and surveillance; Z71.89 Other specified counseling
CPT/HCPCS: 96127

== ENCOUNTER 2024-11-20 13:18 | Outpatient (AMB) | payer BC, SELFPAY ==
[2024-11-20 13:28] VITALS: BP 100/70; PULSE 85; RESP 16; TEMP 36.7; O2SAT 97; BMI 30.9
--- NOTE | 2024-11-20 13:28 | MHC.PC.OV ---
Vital Signs 11/20/24 13:28 Height 5 ft 8 in Weight 203 lb BMI 30.9 BP 100/70 Blood Pressure Location Lt brachial Position Sitting Respiration 16 Pulse 85 Pulse Source Pulse Oximeter Temp 98.1 F Temp Source Oral Pulse Oximetry (%) 97 Oxygen Delivery Method Room Air Intake Visit Reasons: Annual PE Intake Note: Pt is here today for her PE: Last mammogram 02/21/24, colonoscopy 02/23/21 Allergies No Known Allergies Allergy (Unknown, Verified 11/20/24 14:05) N/A Medication List - Last Reconciled 11/20/24 by Jody Feliciano MD aspirin (Adult Low Dose Aspirin) 81 mg PO DAILY bupropion HCl XL 150 mg PO QAM lisinopril 10 mg PO DAILY omeprazole 40 mg PO DAILY semaglutide (weight loss) (Wegovy) 2.4 mg (0.75 mL) subcut QWEEK 30 days sertraline 50 mg PO DAILY zolpidem 10 mg PO BEDTIME PRN Tobacco use date assessed: 11/20/24 Dental Screening Dental Screen Date: 11/20/24 Did you have a dental visit in the last 12 months?: Yes Did you have a dental problem in the last 6 months where you did not have access to dental care?: No Was dental information given to patient?: Patient has dentist HPI Annual PE HPI Details 64-year-old lady with history of hyperlipidemia, obesity, May-Thurner syndrome, essential hypertension, generalized anxiety disorder, insomnia and GERD, here today for her physical exam. : She is up-to-date with her screening mammogram, last done 02/21/24 with benign findings. She is up-to-date with her colon cancer screening, with last colonoscopy done 02/23/21 showing presence of diverticulosis and internal and external hemorrhoids. She is due again for repeat colonoscopy in 2030.. She has been having intermittent episodes of aching pain in her right flank, sometimes going down her lower abdomen. Denies any dysuria, no urinary frequency or urgency, no incontinence. Has history of bilateral nephrolithiasis. Denies any fever, no nausea or vomiting. [facility] Medical History (Updated 11/25/24 @ 04:00 by Jody Feliciano MD) Bilateral nephrolithiasis Hyperlipidemia Cervical spondylosis with myelopathy May-Thurner syndrome Left lumbosacral radiculopathy Essential hypertension Generalized anxiety disorder History of empyema of pleura Insomnia GERD (gastroesophageal reflux disease) History of ADHD Mild intermittent asthma in adult without complication Surgical History History of colonoscopy History of thoracentesis H/O laparoscopic adjustable gastric banding Hx of cholecystectomy H/O laparoscopic adjustable gastric banding Family History Father Essential hypertension Mental health disorder Mother No problems noted. Daughter No problems noted. Social History Housing: Condominium Alcohol intake: never Patient Tobacco Use Status: Never used Tobacco e-Cigarette/Vaping Use: Never Used service: No Current occupational status: retired Cognitive needs: No Hearing needs: No Vision needs: Yes Questionnaire PHQ-9 Over the last 2 weeks, how often have you been bothered by any of the following problems? 1. Little interest or pleasure in doing things: not at all 2. Feeling down, depressed, or hopeless: not at all 3. Trouble falling or staying asleep, or sleeping too much: not at all 4. Feeling tired or having little energy: not at all 5. Poor appetite or overeating: not at all 6. Feeling bad about yourself - or that you are a failure or have let yourself or your family down: not at all 7. Trouble concentrating on things, such as reading the newspaper or watching television: not at all 8. Moving or speaking so slowly that other people could have noticed. Or the opposite - being so fidgety or restless that you have been moving around a lot more than usual: not at all 9. Thoughts that you would be better off or of hurting yourself in some way: not at all Total score: 0 Depression Screening Interpretation: Negative Depression Screening Done: Yes 74843 - PHQ-9 Billing: Yes Source: Developed by Drs. Sidney Patel, Maeve Rahman, Ralph Sanz and colleagues, with an educational pedro from [employer]. Thrive Questionnaire Date Thrive assessed: 11/20/24 I am a: Patient What is your living situation today?: I have a steady place to live Within the past 12 months, did the food you bought not last and you didn't have the money to get more?: Never true Within the past 12 months, did you worry whether your food would run out before you got money to buy more?: Never true Do you have trouble paying for medicines?: No Do you have trouble getting transportation to medical appointments?: No Do you have trouble paying your heating and electricity bill?: No Do you have trouble taking care of your child, family member or friend?: No Do you have trouble with day-to-day activities such as bathing, preparing meals, shopping, managing finances, etc.?: No Are you currently unemployed and looking for a job?: No Are you interested in more education?: No Please select the resources that you would like help with: None Currently or been in a relationship where the following occur: I choose not to answer THRIVE Score: 0 AUDIT C Alcohol Use Questionnaire (AUDIT-C) 1. How often do you have a drink containing alcohol?: Never Total Score: 0 GILLIAN-7 AMB Questionnaire GILLIAN-7 Date GILLIAN - 7 assessed: 11/20/24 Feeling nervous, anxious, or on edge: 0 = Not at all Not being able to stop or control worryin = Not at all Worrying too much about different things: 0 = Not at all Trouble relaxin = Not at all Being so restless that it is hard to sit still: 0 = Not at all Becoming easily annoyed or irritable: 0 = Not at all Feeling afraid as if something awful might happen: 0 = Not at all Total GILLIAN-7 score (0-4 normal; 5-9 mild; 10-14 moderate; 15-21 severe): 0 Source: Developed by Drs. Sidney Patel, Maeve Rahman, Ralph Sanz and colleagues, with an educational pedro from [employer]. GILLIAN-7 Assessment Billing GILLIAN-7 Assessment Tool: GILLIAN-7 Assessment 67936 Review of Systems Const Reports difficulty sleeping, Denies headache(s) and Denies weakness Eyes Denies change in vision ENT Denies dizziness, Denies headache(s), Denies nasal congestion and Denies nasal discharge Card Denies chest pain, Denies lightheadedness, Denies palpitations and Denies dyspnea Resp Denies chest congestion, Denies cough, Denies dyspnea and Denies wheezing GI Denies abdominal pain and Denies change in bowel habits Details: goes [facility] in [place] , has appt for pap/pelvic exam in 12/2024 Denies urinary frequency, Denies dysuria and Denies urinary urgency Musc Reports no additional complaints Skin/Breast Denies breast pain, Denies breast mass and Denies rash Neuro Denies dizziness, Denies headache(s) and Denies weakness Psych Reports no additional complaints Endo Denies polydipsia, Denies polyuria and Denies palpitations William/Lymph Reports no additional complaints Aller/Immun Denies seasonal rhinorrhea and Denies wheezing Physical exam (Primary Care) Vital Signs: Last Vital Signs Temp 98.1 F 11/20/24 13:28 Pulse 85 11/20/24 13:28 Resp 16 11/20/24 13:28 BP 100/70 11/20/24 13:28 Pulse Ox 97 11/20/24 13:28 Oxygen Delivery Method Room Air 11/20/24 13:28 BMI result Body Mass Index 30.9 Tobacco/Smoking Status: Tobacco use Status Tobacco use date assessed 11/20/24 11/20/24 13:30 Patient Tobacco Use Status Never used Tobacco 11/20/24 13:30 e-Cigarette/Vaping Use Never Used 11/20/24 13:30 PHQ-9: PHQ-9 Score PHQ-9: Total score 0 11/20/24 14:25 Depression Screening Interpretation: Negative Thrive Assessment: Date of Thrive Assessment Date Thrive assessed 11/20/24 11/20/24 13:30 Currently or been in a relationship where the following occur: I choose not to answer Advance Care Planning discussion: Completed/Scanned Date of discussion: 11/20/24 Who was present: Patient Forms completed: Health Care Proxy Time spent: 16-45 minutes Actual minutes spent: 3 Const Other: Alert oriented x3, no acute cardiorespiratory distress, ambulatory normal gait HENMT Ears: external ears normal and TM's normal bilaterally General nose exam: Normal external nose present Face and sinus: Yes face symmetric Mouth: Normal oral and palatal mucosa present, oropharynx normal and moist mucous membranes Eyes General: appearance normal, both eyes and all related structures Neck Other: Supple with no lymphadenopathy, thyroid gland nonpalpable Chest Breast/axilla palpation: normal palpation of the breasts Resp Effort & Inspection: normal respiratory effort and able to speak in complete sentences Auscultation: clear to auscultation bilaterally Cardio Other: S1-S2 present regular rate and rhythm GI Other: Normal bowel sounds, soft, slight tenderness on deep palpation over right upper quadrant, no mass, no rebound or guarding General: Yes no CVA tenderness Back/Spine/Pelvis Back: no CVA tenderness and No back tenderness Skin General skin exam: no rashes or lesions noted Neuro General: gait normal, tone normal and No moves all extremities Extrem General: Yes full ROM, Yes no joint enlargement and Yes no pedal edema Psych Appearance: grossly normal and well kempt Speech and movement: Normal speech and movement present Affect: normal affect Attitude: cooperative Coding Level of Care Code Est Pt Prev Care 40-64y(59512) Diagnoses Annual visit for general adult medical examination with abnormal findings Z00.01 Bilateral nephrolithiasis N20.0 Right flank discomfort R10.9 Urinary urgency R39.15 Gastroesophageal reflux disease, unspecified whether esophagitis present K21.9 Esophagitis presence: esophagitis presence not specified Primary insomnia F51.01 Insomnia type: primary Generalized anxiety disorder F41.1 Essential hypertension I10 Obesity (BMI 35.0-39.9 without comorbidity) E66.9 Advanced directives, counseling/discussion Z71.89 Additional Codes Vital Signs *Quality* - Advance Care Planning discussion: Completed/Scanned ([id number]) Vital Signs *Quality* - Time spent: 16-45 minutes ([id number]) GILLIAN-7 Assessment Billing - GILLIAN-7 Assessment Tool: GILLIAN-7 Assessment 62678 ([id number]) PHQ-9 - 72158 - PHQ-9 Billing: Yes ([id number]) Assessment & Plan Assessment & Plan (1) Annual visit for general adult medical examination with abnormal findings: Code(s): Z00.01 - Encounter for general adult medical examination with abnormal findings Plan: Will check appropriate labs. Continue recommend dental visit every 6 months and regular eye exams, at least every 2 years. Take adequate calcium in diet and vitamin-D 3 at 2000 IU per cap once a day, in addition to weight-bearing exercises to help maintain good muscle tone and weight control. Instructed to do self-breast exam, and continue with yearly mammogram, ordered screening mammogram for this year together with a bone density scan. She is up-to-date with her screening colonoscopy. Reminded to get her yearly flu shot and COVID booster, as well as her shingles vaccine. Up-to-date with her Tdap. Received 1 pneumonia vaccine (2) Bilateral nephrolithiasis: Code(s): N20.0 - Calculus of kidney Category: Medical Plan: Renal ultrasound ordered (3) Right flank discomfort: Code(s): R10.9 - Unspecified abdominal pain Category: Medical Plan: Renal ultrasound ordered. (4) Urinary urgency: Code(s): R39.15 - Urgency of urination Plan: Urinalysis with reflex culture and sensitivity ordered. (5) GERD (gastroesophageal reflux disease): Comment: Had EGD done by Dr. grider in 2013, with a which also showed hiatal hernia Code(s): K21.9 - Gastro-esophageal reflux disease without esophagitis Category: Medical Qualifiers: Esophagitis presence: esophagitis presence not specified Qualified Code(s): K21.9 - Gastro-esophageal reflux disease without esophagitis Plan: Currently on omeprazole 40 mg daily (6) Insomnia: Code(s): G47.00 - Insomnia, unspecified Category: Medical Qualifiers: Insomnia type: primary Qualified Code(s): F51.01 - Primary insomnia Plan: Takes zolpidem as needed for insomnia (7) Generalized anxiety disorder: Code(s): F41.1 - Generalized anxiety disorder Category: Medical Plan: Continued on sertraline 50 mg daily (8) Essential hypertension: Code(s): I10 - Essential (primary) hypertension Category: Medical Plan: Blood pressure at goal of less than 130/80. Continue with lisinopril 10 mg daily. Reinforced importance of following a low sodium diet, getting regular exercise, and lowering stress levels. (9) Obesity (BMI 35.0-39.9 without comorbidity): Comment: Code(s): E66.9 - Obesity, unspecified Category: Medical Plan: Reinforced importance of following a healthy diet and combining this with regular exercise. Prescription refill sent for Wegovy at 2.4 mg to be injected subcutaneously once a week. Will see her back for follow-up in 05/31/2025 (10) Advanced directives, counseling/discussion: Code(s): Z71.89 - Other specified counseling Plan: Initiated the conversation about Advanced Directives. Advanced Directives help patients prepare for current and future decisions about their medical treatment and place of care. Discussed with patient that it is a process where a patients current condition and prognosis are reviewed, their wishes for information regarding their illness are elicited, and likely medical dilemmas are presented and options discussed. Healthcare proxy form completed today. The form can be amended as needed, reviewed yearly and make changes as needed Orders: Orders XR DEXA axial skeleton 11/20/24 Z12.31 - Encounter for screening mammogram for malignant neoplasm of breast, Z78.0 - Asymptomatic menopausal state Vitamin D 25-OH Total 05/12/25 E66.9 - Obesity, unspecified, F41.1 - Generalized anxiety disorder, F51.01 - Primary insomnia, I10 - Essential (primary) hypertension, K21.9 - Gastro-esophageal reflux disease without esophagitis Basic Metabolic Panel Fasting 05/12/25 E66.9 - Obesity, unspecified, F41.1 - Generalized anxiety disorder, F51.01 - Primary insomnia, I10 - Essential (primary) hypertension, K21.9 - Gastro-esophageal reflux disease without esophagitis Alanine Aminotransferase 05/12/25 E66.9 - Obesity, unspecified, F41.1 - Generalized anxiety disorder, F51.01 - Primary insomnia, I10 - Essential (primary) hypertension, K21.9 - Gastro-esophageal reflux disease without esophagitis Lipid Panel 05/12/25 E66.9 - Obesity, unspecified, F41.1 - Generalized anxiety disorder, F51.01 - Primary insomnia, I10 - Essential (primary) hypertension, K21.9 - Gastro-esophageal reflux disease without esophagitis TSH reflex Free T4 05/12/25 E66.9 - Obesity, unspecified, F41.1 - Generalized anxiety disorder, F51.01 - Primary insomnia, I10 - Essential (primary) hypertension, K21.9 - Gastro-esophageal reflux disease without esophagitis US renal BI 11/20/24 N20.0 - Calculus of kidney, R10.9 - Unspecified abdominal pain MM tomosynthesis screening BI 11/20/24 Z12.31 - Encounter for screening mammogram for malignant neoplasm of breast, Z78.0 - Asymptomatic menopausal state UA CC w/rflx Micro + Cult 11/20/24 R10.9 - Unspecified abdominal pain, R39.15 - Urgency of urination Aspartate Amino Transferase 05/12/25 E66.9 - Obesity, unspecified, F41.1 - Generalized anxiety disorder, F51.01 - Primary insomnia, I10 - Essential (primary) hypertension, K21.9 - Gastro-esophageal reflux disease without esophagitis Referrals Urology Referral N20.0 - Calculus of kidney, R10.9 - Unspecified abdominal pain Medications: Changed From semaglutide (weight loss) (Wegovy) 2.4 mg (0.75 mL) subcut QWEEK 30 days 3 mL 5RF To Wegovy (semaglutide (weight loss)) 2.4 mg (0.75 mL) subcut QWEEK 30 days 3 mL 5RF NS Discontinued nitrofurantoin macrocrystal must administer with a meal/food Discontinued Reason: Patient Refused 100 mg PO Q12H 20 caps 0RF
--- OUTSIDE RECORDS SUMMARY | 2024-11-20 15:36 | XMS_ITS | Encounter Summary ---
Author Organization [facility] Address [address] [place] [address] Care Team Providers Care Department Of Mathematics Chair Name Role Phone Jody Feliciano MD Primary Care Provider Encounter Details Date Type Department Care Team (Late st Contact Info) Description 05/24/2023 11:53 AM EDT Hospital Encounter [facility] [address] [place] [phone] Robert Huffman MD [address] [place] [address] Social History Tobacco Use Types Packs/Day Years Used Date Smoking Tobacco: Never Assessed Sex and Gender Information Value Date Recorded Sex Assigned at Not on file Gender Identity Not on file Sexual Orientation Not on file documented as of this encounter Plan of Treatment Not on file documented as of this encounter Procedures Procedure [...] Impression: Clear lungs. DAX Mariee IMG DIAGNOSTIC IMAGI NG ORDERABLES documented in this encounter Visit Diagnoses Not on filedocumented in this encounter Care Teams Department Of Mathematics Chair Relationship Specialty Start Date End Date Jody Feliciano MD [address] [place] [address] PCP - General Internal Medicine 05/24/23 documented as of this encounter
--- OUTSIDE RECORDS SUMMARY | 2024-11-20 15:36 | XMS_ITS ---
Author Organization [facility] Address [address] [place] [address] Care Team Providers Care Process Engineering Technician Name Role Phone Quynh Ramirez Unavailable [phone] Encounters Encounter Location Date Provider Diagnosis [address] [address] 05/01/2024 Quynh Ramirez PLAN OF TREATMENT No Information Progress Notes * Shelli GRAYSONDOB:1960 (64 yo F)Acc No.[id number]:05/01/2024 Patient:??Shelli GRAYSON Provider:??Quynh Ramirez PA-C :1960?Age:64 Y?Sex:Fe male Date:05/01/2024 Address:[address], [facility] Subjective: * Chief Complaints: * ? * HPI: ?Constitutional:? Mariah is a 64-year-old female new patient to our practice today here for weight management consult. ?Highest weight: ?Lowest weight: ?Current weight: ?Goal weight: ?Trials in the past: ?Protein intake: ?Water intake: ?Exercise: ?Barriers: ?FH: ?Recent Labs:. * ROS:?Constitutional: Patient denies any excessive fatigue with exercise, [...] polyuria no polyphagia or polydipsia. * Medical History:?? Objective: * Physical Examination:?General: Well appearing, well nourished, age appropriate in no acute distress. Speaking in full, clear sentences. ?SKIN: Warm, dry intact. No rashes/lesions. ?HEENT: Normocephalic atraumatic. EOM intact. No nystagmus noted. PERRLA. ?LUNGS: Clear to auscultation bilaterally, no wheezes, rales or rhonchi ?CARDIAC: Regular rate and rhythm, no murmurs, rubs or gallops. ?Extremities: Warm and well perfused. No edema noted. ?Neuro: CN II-XI grossly intact. Speaking in full sentences. Hearing intact. Assessment: Plan: * Treatment: * Procedure Codes:??42498 NO S HOW OFFICE VISIT * Images: Billing Information: * Visit Code:?? * Procedure Codes:?? 20376 NO SHOW OFFICE VISIT. * Sign off status: Pending * Provider:??Quynh Ramirez PA-C Date:??04/12 History and Physical Notes * HPI (History [...]
--- OUTSIDE RECORDS SUMMARY | 2024-11-20 15:36 | XMS_ITS | Patient Health Record ---
Author Organization [facility] Address [address] [place] [address] Care Team Providers Care Shipping Services Sales Representative Name Role Phone James Quynh Unavailable [phone] REASON FOR REFERRAL No Information Encounters Encounter Location Date Provider Diagnosis [address] [facility] [address] [place] [address] 05/01/2024 Quynh Svrhermank PLAN OF TREATMENT No Information Insurance Providers Payer Name Payer Address Payer Phone Subscriber Number Group Number Insured Name Patient Relationship to Insured Coverage Start Date Coverage End Date [facility] [address] [place] [address] [id number] Shelli Hernandez Self - patient is the insured
--- OUTSIDE RECORDS SUMMARY | 2024-11-20 15:36 | XMS_ITS ---
Author Name [facility] Organization Unknown History of Medication Use Medication Directions Dispensed Refills Start Date End Date Stat us buPROPion (WELLBUTRIN XL) 150 MG 24 hr tablet Take 150 mg by mouth daily. 03/24/2023 active Problems Problem Status Onset Date Problem Type Date of Resoluti on Source Pneumonia of left upper lobe due to infectious organism [facility] Encounters Encounter Type Encounter Reason Primary Diagnosis Location Date Ambulatory [facility] 05/24/2023 Ambulatory Pneumonia, unspecified organism Pneumonia, unspecified organism [facility] 05/24/2023 Care Team Organization Name Specialty Phone Email Start Date End [place] te [place] [facility] 10/01/2023 [facility] 05/24/20232022 [facility] 05/24/20232024
--- OUTSIDE RECORDS SUMMARY | 2024-11-20 15:36 | XMS_ITS | Clinical Summary ---
Author Organization [facility] Address [address] [place] [id number] Care Team Providers Care Case Preparer And Liner Name Role Phone Jody Feliciano MD Primary Care Provider Allergies No known active allergies Medications Medication Sig Dispensed Refills Start Date End Date Status lisinopril (PRINIVIL,ZeSTRIL) 10 MG tablet 05/21/2023 Active buPROPion (WELLBUTRIN XL) 150 MG 24 hr tablet Take 150 mg by mouth daily. 03/24/2023 Active zolpidem (AMBIEN) 10 MG tablet Take 10 mg by mouth nightly as needed. as needed for insomnia 05/11/2023 Active aspirin enteric coated (ECOTRIN LOW STRENGTH) 81 MG EC tablet Take 81 mg by mouth daily. Active OMEprazole (PriLOSEC) 40 MG capsule Take 40 mg by mouth every morning before breakfast. Active doxycycline (VIBRAMYCIN) 100 MG capsuleIndications:P neumonia of left upper lobe due to infectious organism Take 1 capsule (100 mg total) by mouth 2 (two) times a day. 14 capsule 05/24/2023 Active Active Problems No known active problems Social History Tobacco Use Types Packs/Day Years Used Date Smoking Tobacco: Never Assessed Sex and Gender Information Value Date Recorded Sex Assigned at Not on file Gender Identity Not on file Sexual Orientation Not on file Last Filed Vital Signs Vital Sign Reading Time Taken Comments Blood Pressure 157/77 05/24/2023 11:21 AM EDT Pulse 86 05/24/2023 11:21 AM EDT Temperature 36.3 ??C (97.4 ??F) 05/24/2023 11:21 AM E DT Respiratory Rate - - Oxygen Saturation 98% 05/24/2023 11:21 AM EDT Inhaled Oxygen Concentration - - Weight - - Height - - Body Mass Index - - Plan of Treatment Health Maintenance Due Date Last Done Comments Hepatitis C Virus Screening 1960 HIV Screening 1975 DTaP/Tdap/Td Vaccines (1 - Tdap) 1981 Pap Smear (Ages 21-65) 1983 Mammogram 2002 Colonoscopy 2007 Pneumococcal Vaccines 50+ (1 of 1 - PCV) 2012 Zoster (Shingles) Vaccine (1 of 2) 2012 Influenza Vaccine 04/11/2024 06/14/2022 COVID-19 Vaccine (2 - 2023-2 5 season) 2024 06/14/2022 RSV Vaccine 60 years and old er and Patients (1 - 1-dose 75+ series) 2037 Hepatitis B Vaccines Aged Out No long er eligible based on patient's age to complete this topic Pneumococcal Vaccine: Pediat omaira (0-5 Years) and At-Risk Patients (6 to 49 Years) Aged Out No longer eligible b ased on patient's age to complete this topic Care Teams Case Preparer And Liner Relationship Specialty Start Date End Date Jody Feliciano MD [address] [place] [address] PCP - General Internal Medicine 05/24/23
== END 2024-11-20 14:51 | disposition home or self-care (01) ==
LOC: HO.HMCC 13:19
PROVIDERS: PCP Internal Medicine; Visit Provider Internal Medicine
DX: Z00.01 Encounter for general adult medical examination with abnormal findings (principal); N20.0 Calculus of kidney; R10.9 Unspecified abdominal pain; R39.15 Urgency of urination; K21.9 Gastro-esophageal reflux disease without esophagitis; F51.01 Primary insomnia; F41.1 Generalized anxiety disorder; I10 Essential (primary) hypertension; E66.9 Obesity, unspecified; Z71.89 Other specified counseling; Z00.00 Encounter for general adult medical examination without abnormal findings

== ENCOUNTER 2024-11-20 14:51 | Outpatient (REF) | payer BC, SELFPAY ==
--- NOTE | ~2024-11-20 | US_ITS ---
EXAMINATION: US RETROPERITONEAL LIMITED (RENAL ONLY) CLINICAL INFORMATION: Calculus of kidney.. COMPARISON: 01/23/2023. TECHNIQUE: Real-time imaging of the kidneys. FINDINGS: RIGHT KIDNEY: 11.7 x 5.7 x 5.4 cm (SAG x AP x TRV). The kidney is normal in size, contour, and echogenicity. Renal cortical thickness is normal. No calculi or focal parenchymal lesions. No hydronephrosis. LEFT KIDNEY: 11.3 x 5.2 x 5.2 cm (SAG x AP x TRV). The kidney is normal in size, contour, and echogenicity. Renal cortical thickness is normal. No calculi or focal parenchymal lesions. No hydronephrosis. US/US renal BI IMPRESSION: Normal examination of the kidneys.. Electronically signed by: Dwight Mcfarlane MD 11/20/2024 04:01 PM EDT
[2024-11-20 16:25] LABS: Appearance Urine Cloudy; Color Urine Dark Yellow; Glucose Urine UA Negative (Negative); Leukocyte Esterase Urine Trace (Negative); Nitrite Urine Negative (Negative); Specific Gravity - Urine >= 1.030 (1.005-1.025); UMIC TRIGGER UACC YES; Urine Blood Negative (Negative); Urine Ketones Trace mg/dL (Negative); Urine Protein Trace mg/dL (Neg-Trace)
[2024-11-20 16:40] LABS: Bacteria Urine 4+ (None Seen); Calcium Oxalate Crystals Urine Present; RBC Urine 0-2 /HPF (0-2); WBC Urine 0-5 /HPF (0-5)
== END 2024-11-20 14:52 | disposition home or self-care (01) ==
LOC: HO.HMGCX 14:51
PROVIDERS: PCP Internal Medicine; Visit Provider Internal Medicine
DX: N20.0 Calculus of kidney (principal); R10.9 Unspecified abdominal pain
CPT/HCPCS: 76775; 81001

== ENCOUNTER → 2024-11-20 15:13 | Outpatient (BNV) | payer BC, SELFPAY | PROVIDERS: PCP Internal Medicine; Visit Provider Radiology Diagnostic Radiology | DX: N20.0 Calculus of kidney (principal) | CPT/HCPCS: 76775 ==

== ENCOUNTER 2025-05-28 15:52 | Outpatient (REF) | payer BC, SELFPAY ==
--- OUTSIDE RECORDS SUMMARY | 2023-05-24 11:53 | XMS_ITS | Encounter Summary ---
Author Organization [facility] Address [address] [place] [address] Care Team Providers Care Horse Riding Coach Or Instructor Name Role Phone Jody Feliciano MD Primary Care Provider Encounter Details Date Type Department Care Team (Late st Contact Info) Description 05/24/2023 11:53 AM EDT Hospital Encounter [facility] [address] [place] [phone] Robert Huffman MD [address] [place] [address] Social History Tobacco Use Types Packs/Day Years Used Date Smoking Tobacco: Never Assessed Comments Unknown Sex and Gender Information Value Date Recorded Sex Assigned at Not on file Legal Sex Female 9:42 AM EDT Gender Identity Not on file Sexual Orientation Not on file documented as of this encounter Plan of Treatment Upcoming Encounters Date Type Department Care Team (Late st Contact Info) Description 08/19/2025 3:00 PM EST Office Visit [address] [phone] Laura Leonard MD [address] [place] [phone] documented as of this encounter Procedures Procedure Name Priority Date/Time Associated Diagnosis Comments XR CHEST 2 VIEWS STAT 05/24/2023 12:0 3 PM EDT Acute cough documented in this encounter Results * XR Chest 2 views (05/24/2023 12:03 PM EDT) Anatomical Region Laterality Modality Chest Computed Radiogr aphy 05/24/2023 12:1 6 PM EDT Impressions 05/24/2023 12:17 PM EDT Impression: Clear lungs. Narrative 05/24/2023 12:17 PM EDT XR CHEST 2 VIEWS: 05/24/2023 11:54 AM CLINICAL HISTORY: Cough and left chest pressure Comparisons: None available. Technique: PA and Lateral views. 2 views. Findings: The cardiac silhouette is normal in size. The mediastinal and hilar structures appear unremarkable. The lungs are well expanded without focal infiltrates identified. The visualized osseous structures appear unremarkable. Procedure Note Sidney Harris MD - 05/24/2023 XR CHEST 2 VIEWS: 05/24/2023 11:54 AM CLINICAL HISTORY: Cough and left chest pressure Comparisons: None available. Technique: PA and Lateral views. 2 views. Findings: The cardiac silhouette is normal in size. The mediastinal and hilarstructures appear unremarkable. The lungs are well expanded without focalinfiltrates identified. The visualized osseous structures appearunremarkable. IMPRESSION: Impression: Clear lungs. DAX Mariee IMG DIAGNOSTIC IMAGING ORDERABL ES Final Result documented in this encounter Visit Diagnoses Not on filedocumented in this encounter Care Teams Horse Riding Coach Or Instructor Relationship Specialty Start Date End Date Jody Feliciano MD [address] [place] [address] PCP - General Internal Medicine 05/24/23 documented as of this encounter
--- OUTSIDE RECORDS SUMMARY | 2024-05-01 10:00 | XMS_ITS ---
Author Organization [facility] [address] [address] Address [address] [place] [address] Care Team Providers Care Shank Turner Name Role Phone Quynh Ramirez Unavailable [phone] Encounters Encounter Location Date Provider Diagnosis [facility] [address] [facility] [address] [place] [id number] 05/01/2024 Quynh Ramirez Plan Of Treatment No Information Progress Notes * Shelli GRAYSONDOB:1960 (65 yo F)Acc No.[id number]:05/01/2024 Patient: Shelli CALLEJAS Provider: Tomer Ramirez PA-C :1960 A ge:64 Y S ex:Female Date:05/01/2024 Address:[address], [place] [id number] Subjective: * Chief Complaints: * * HPI: C onstitutional: Mariah is a 64-year-old female new patient to our practice today here for weight management consult. Highest weight: Lowest weight: Current weight: Goal weight: Trials in the past: Protein intake: Water intake: Exercise: Barriers: FH: Recent Labs:. * ROS: C onstitutional: Patient denies any excessive fatigue with exercise, no weight loss, no fever and no night sweats Eyes: No eye discharge, no itching, no redness. Ear nose throat: No sore throat, postnasal drip, runny nose, Sneezing Cardiovascular: No chest pain, no shortness of breath, no dyspnea on exertion, no PND, no orthopnea, no irregular pulse Respiratory: No chronic cough, no hemoptysis, no sputum, no wheezing GI, no diarrhea, no constipation no blood in the stools, no pain associated with eating, no indigestion Genitourinary: No painful urination no hesitancy no blood in the urine, Musculoskeletal, no limitations to walking and running, no joint deformity, no joint stiffness, no chronic back pain, no noise with joint movement Integumentary, no new skin rash. No new changes in skin moles Neurological: No history of seizures, memory loss, No language dysfunction, No inability to concentrate, no localized weakness, no sensation loss, no confusion Psychiatric: No depression, no suicidal thoughts, no anxiety Endocrine: No polyuria no polyphagia or polydipsia. * Medical History: Objective: * Vitals: * Physical Examination: G eneral: Well appearing, well nourished, age appropriate in no acute distress. Speaking in full, clear sentences. SKIN: Warm, dry intact. No rashes/lesions. HEENT: Normocephalic atraumatic. EOM intact. No nystagmus noted. PERRLA. LUNGS: Clear to auscultation bilaterally, no wheezes, rales or rhonchi CARDIAC: Regular rate and rhythm, no murmurs, rubs or gallops. Extremities: Warm and well perfused. No edema noted. Neuro: CN II-XI grossly intact. Speaking in full sentences. Hearing intact. Assessment: Plan: * Treatment: * Procedure Codes: 9 9199 NO SHOW OFFICE VISIT * Images: Billing Information: * Visit Code: * Procedure Codes: 37309 NO SHOW OFFICE VISIT. * Electronic signature of Quynh Ramirez PA-C on 05/28/2025 at 07:08 PM EDT Sign off status: Pending * Provider: Tomer Ramirez PA-C Date: 0 05/01/2024 Generated for Breanne rashid/Rae/Danica on: 0 05/28/2025 07:08 PM EDT History and Physical Notes * HPI (History of Present Illness) Category Sub-Category Detail Notes Category Not es Constitutional Mariah is a 64-year-old female new patient to our practice today here for weight management consult. Highest weight: Lowest weight: Current weight: Goal weight: Trials in the past: Protein intake: Water intake: Exercise: Barriers: FH: Recent Labs: Physical Examination Category Sub-Category Detail Notes Section Note s General: Well appearing, well nourished, age appropriate in no acute distress. Speaking in full, clear sentences. SKIN: Warm, dry intact. No rashes/lesions. HEENT: Normocephalic atraumatic. EOM intact. No nystagmus noted. PERRLA. LUNGS: Clear to auscultation bilaterally, no wheezes, rales or rhonchi CARDIAC: Regular rate and rhythm, no murmurs, rubs or gallops. Extremities: Warm and well perfused. No edema noted. Neuro: CN II-XI grossly intact. Speaking in full sentences. Hearing intact.
[2025-05-28 18:36] LABS: Alanine Aminotransferase 38 U/L (0-31); Anion Gap 11 (12-20); Aspartate Amino Transferase 30 U/L (5-31); Blood Urea Nitrogen 18 mg/dL (9-16); Calcium 9.7 mg/dL (8.4-10.2); Carbon Dioxide 24 mmol/L (22-29); Chloride 109 mmol/L (96-108); Cholesterol 207 mg/dL (<200); Estimated Glomerular Filt Rate > 60; HDL Cholesterol 55 mg/dL (>40); Potassium 4.3 mmol/L (3.3-5.1); Sodium 140 mmol/L (135-145); Triglycerides 136 mg/dL (<150)
--- OUTSIDE RECORDS SUMMARY | 2025-05-28 19:08 | XMS_ITS | Patient Health Record ---
Author Organization [facility] Address [address] [place] [address] Care Team Providers Care Medical Billing Supervisor Name Role Phone Quynh Ramirez Unavailable [phone] Reason For Referral No Information Plan Of Treatment No Information Insurance Providers Payer Name Payer Address Payer Phone Subscriber Number Group Number Insured Name Patient Relationship to Insured Coverage Start Date Coverage End Date [facility] [address] [facility] [place] [id number] [phone] [id number] Shelli Hernandez Self - patient is the insured
--- OUTSIDE RECORDS SUMMARY | 2025-05-28 19:08 | XMS_ITS | Clinical Summary ---
Author Organization [facility] Address [address] [place] [address] Care Team Providers Care Marine Radio Installer And Servicer Name Role Phone Jody Feliciano MD Primary Care Provider Allergies No known active allergies Medications lisinopril (PRINIVIL,ZeSTR IL) 10 MG tablet 05/21/2023 Active buPROPion (WELLBUTRIN [...] before breakfast. Active doxycycline (VIBRAMYCIN) 100 MG capsuleIndicati ons:Pneumonia of left upper lobe due to infectious [...] 86 05/24/2023 11:21 AM EDT Temperature 36.3 C (97.4 F) 05/24/2023 11:21 AM EDT Respiratory Rate - - Oxygen Saturation 98% 05/24/2023 11:21 AM EDT Inhaled Oxygen Concentration - - Weight - - Height - - Body Mass Index - - Plan of Treatment Upcoming Encounters Date Type Department Care Team (Late st Contact Info) Description 08/19/2025 3:00 PM EST Office Visit [address] [phone] Laura Leonard MD [address] [place] [address] [address] [place] [address] Health Maintenance Due Date Last Done Comments Hepatitis C Virus Screening 1962 HIV Screening 1975 DTaP/Tdap/Td Vaccines (1 - Tdap) 1981 Mammogram 2002 Colonoscopy 2007 Pneumococcal Vaccines 50+ (1 of 1 - PCV) 2012 Zoster (Shingles) Vaccine (1 of 2) 2012 Influenza Vaccine 04/11/2025 06/14/2022 COVID-19 Vaccine (2 - 2024-2 6 season) 2025 06/14/2022 Pap Smear (Ages 21-65) 12/10/2027 12/09/2024 RSV Vaccine 60 years and old er and Patients (1 - 1-dose 75+ series) 2037 Hepatitis B Vaccines Aged Out No long er eligible based on patient's age to complete this topic Procedures Procedure Name Priority Date/Time Associated Diagnosis Comments THINPREP PAP(WATER QUALITY CONTROL ENGINEER) HPV SCR RFX HPV 16,18/45 Routine 12/09/2024 12:00 AM EDT from Last 3 Months or Most Recently Relevant to Health Maintenance Results * ThinPrep Pap(Flotation Tender Helper) HPV Scr Rfx HPV 16,18/45 (12/09/2024 12:00 AM EDT) Report Report [facility] Comment: Final Gynecological Cytology Report ThinPrep Pap Test, HPV Screen, Reflex HPV Genotype SPECIMEN ADEQUACY: SATISFACTORY FOR EVALUATION. INTERPRETATION: NEGATIVE FOR INTRAEPITHELIAL LESION OR MALIGNANCY. Electronically Signed: Ozzie Devine, CT, [facility] CLINICAL INFORMATION: LMP: NG Clinical History: NG Biopsy Date: NG Specimen Source: Cervix, Endocervix Previous Pap Date: NG HPV RESULTS: HPV mRNA E6/E7 [id number] Approved: 12/10/24 Negative REF RANGE: Negative CPT Codes: 48952 ICD Codes: Z01.419 12/09/2024 12/10/2024 12: 54 AM EDT [facility] Lakisha Corona MD LAB AMB PATH/CYTO ORDERABLE S Final Result Performing Organization Address City/State/[facility] Co de Phone Number [facility] [address] [place] from Last 3 Months or Most Recently Relevant to Health Maintenance Insurance MEDICARE PART A [facility] [place] Care Teams Marine Radio Installer And Servicer Relationship Specialty Start Date End Date Jody Feliciano MD [address] [place] [address] PCP - General Internal Medicine 05/24/23
--- OUTSIDE RECORDS SUMMARY | 2025-05-28 19:08 | XMS_ITS ---
Author Name [facility] Unknown History of Medication Use Medication Directions Dispensed Refills Start Date End Date Stat buPROPion (WELLBUTRIN XL) 150 MG 24 hr tablet Take 150 mg by mouth daily. 03/24/2023 active active Problems Problem Status Onset Date Problem Type Date of Resolution Source Hypertensive disorder active 2022-12-09 ProblemAct [facility] Pneumonia of left upper lobe due to infectious organism active EncounterDiagnosisAct CCT Acute cough active EncounterDiagnosisAct [facility] Encounters Encounter Type Encounter Reason Primary Diagnosis Location Date Ambulatory Encntr for machinist tool and die exam (general) (routine) w/o abn findings Encntr for machinist tool and die exam (general) (routine) w/o abn findings [facility] 12/19/2024 Ambulatory no current diagnosis no current diagnosis [facility] 12/09/2024 Ambulatory [facility] 05/24/2023 Ambulatory Pneumonia, unspecified organism Pneumonia, unspecified organism [facility] 05/24/2023 Care Team Organization Name Specialty Phone Email Start Date End [facility] 04/10/2025 [facility] 12/10/2024 [facility] 12/09/2024 [facility] [place] [facility] [place]20232024 [place] [facility] 05/24/20232022 [facility] Termed, [facility] Primary Care 07/19/202204/11
== END 2025-05-28 15:53 | disposition home or self-care (01) ==
LOC: HO.HKASLDS 15:52
PROVIDERS: Visit Provider Internal Medicine
DX: I10 Essential (primary) hypertension (principal); F41.1 Generalized anxiety disorder; F51.01 Primary insomnia; K21.9 Gastro-esophageal reflux disease without esophagitis; E66.9 Obesity, unspecified
CPT/HCPCS: 36415; 80048; 80061; 82306; 84443; 84450; 84460

== ENCOUNTER 2025-05-29 13:23 | Outpatient (AMB) | payer BC, SELFPAY ==
--- OUTSIDE RECORDS SUMMARY | 2023-05-24 11:53 | XMS_ITS | Encounter Summary ---
Author Organization [facility] Address [address] [place] [address] Care Team Providers Care Taker Off Hemp Fiber Name Role Phone Jody Feliciano MD Primary Care Provider Encounter Details Date Type Department Care Team (Late st Contact Info) Description 05/24/2023 11:53 AM EDT Hospital Encounter [facility] [address] [place] [phone] Robert Huffman MD [address] [place] [address] Social History Tobacco Use Types Packs/Day Years [...] Description 08/19/2025 3:00 PM EST Office Visit [address] [phone] Laura Leonard MD [address] [place] [phone] documented as of this encounter Procedures Procedure [...] on filedocumented in this encounter Care Teams Taker Off Hemp Fiber Relationship Specialty Start Date End Date Jody Feliciano MD [address] [place] [address] PCP - General Internal Medicine 05/24/23 documented as of this encounter
--- OUTSIDE RECORDS SUMMARY | 2024-05-01 10:00 | XMS_ITS ---
Author Organization [facility] [address] [address] Address [address] [place] [address] Care Team Providers Care Area Plant Manager Name Role Phone Quynh Ramirez Unavailable [phone] Encounters Encounter Location Date Provider Diagnosis [facility] [address] [facility] [address] [place] [id number] 05/01/2024 Quynh Ramirez Plan Of Treatment No Information Progress Notes * Shelli GRAYSONDOB:1960 (65 yo F)Acc No.[id number]:05/01/2024 Patient: Shelli CALLEJAS Provider: Tomer Ramirez PA-C :1960 A ge:64 Y S ex:Female Date:05/01/2024 Address:[address], [place] [id number] Subjective: * Chief Complaints: * * HPI: [...] Information: * Visit Code: * Procedure Codes: 24810 NO SHOW OFFICE VISIT. * Electronic signature of Quynh Ramirez PA-C on 05/29/2025 at 03:24 PM EDT Sign off status: Pending * Provider: Tomer Ramirez PA-C Date: 0 05/01/2024 Generated for Breanne rashid/Rae/Danica on: 0 05/29/2025 03:24 PM EDT History and Physical Notes * [...]
--- NOTE | 2025-05-29 13:26 | A.OFFPC_ITS ---
Vital Signs 05/29/25 13:42 Height 5 ft 8 in Weight 200 lb BMI 30.4 BP 120/80 Blood Pressure Location Lt brachial Position Sitting Respiration 15 Pulse 80 Pulse Source Pulse Oximeter Temp 98.4 F Temp Source Oral Pulse Oximetry (%) 97 Oxygen Delivery Method Room Air Intake Visit Reasons: 6m f/u Intake Note: Pt is here today for her 6mo. f/u Allergies No Known Allergies Allergy (Unknown, Verified 05/29/25 13:57) N/A Medication List - Last Reconciled 05/29/25 by Jody Feliciano MD aspirin (Adult Low Dose Aspirin) 81 mg PO DAILY bupropion HCl XL 150 mg PO QAM lisinopril 10 mg PO DAILY omeprazole 40 mg PO DAILY sertraline 50 mg PO DAILY Wegovy (semaglutide (weight loss)) 2.4 mg (0.75 mL) subcut QWEEK 30 days NS zolpidem 10 mg PO BEDTIME PRN Tobacco use date assessed: 05/29/25 Dental Screening Dental Screen Date: 05/29/25 Did you have a dental visit in the last 12 months?: No Did you have a dental problem in the last 6 months where you did not have access to dental care?: No Was dental information given to patient?: Patient has dentist HPI 6m f/u HPI Details 65 year-old lady with history of hyperli pidemia, obesity, May-Thurner syndrome, essential hypertension, generalized anxiety disorder, insomnia and GERD, here today for her follow-up visit. Has been compliant with taking her medications, feels well on current dose of bupropion and sertraline. Has been compliant with her diet and has been getting regular exercise, but weight loss has started slowing down, even when on Wegovy.. Blood pressure stable and controlled on lisinopril Recent fasting labs done showed normal glucose, renal function, lipids however showed slightly higher LDL cholesterol as compared to last check but HDL cholesterol are within normal limits. Has history of GERD, but states that prescription for omeprazole was not covered anymore by her insurance, has been buying [id number] Prilosec, which has been getting very expensive. Has not tried any other acid reducing agent. [facility] Medical History (Updated 05/29/25 @ 14:20 by Jody Feliciano MD) History of nephrolithiasis Hyperlipidemia Cervical spondylosis with myelopathy May-Thurner syndrome Left lumbosacral radiculopathy Essential hypertension Generalized anxiety disorder History of empyema of pleura Insomnia GERD (gastroesophageal reflux disease) History of ADHD Mild intermittent asthma in adult without complication Surgical History History of colonoscopy History of thoracentesis H/O laparoscopic adjustable gastric banding Hx of cholecystectomy H/O laparoscopic adjustable gastric banding Family History Father Essential hypertension Mental health disorder Mother No problems noted. Daughter No problems noted. Social History Housing: Condominium Alcohol intake: never Patient Tobacco Use Status: Never used Tobacco e-Cigarette/Vaping Use: Never Used service: No Current occupational status: retired Cognitive needs: No Hearing needs: No Vision needs: Yes Questionnaire PHQ-9 Over the last 2 weeks, how often have you been bothered by any of the following problems? 1. Little interest or pleasure in doing things: not at all 2. Feeling down, depressed, or hopeless: not at all 3. Trouble falling or staying asleep, or sleeping too much: not at all 4. Feeling tired or having little energy: not at all 5. Poor appetite or overeating: not at all 6. Feeling bad about yourself - or that you are a failure or have let yourself or your family down: not at all 7. Trouble concentrating on things, such as reading the newspaper or watching television: not at all 8. Moving or speaking so slowly that other people could have noticed. Or the opposite - being so fidgety or restless that you have been moving around a lot more than usual: not at all 9. Thoughts that you would be better off or of hurting yourself in some way: not at all Total score: 0 Depression Screening Interpretation: Negative Depression Screening Done: Yes Source: Developed by Drs. Sidney Patel, Maeve Rahman, Ralph Sanz and colleagues, with an educational pedro from [employer]. Thrive Questionnaire Date Thrive assessed: 11/20/24 I am a: Patient What is your living situation today?: I have a steady place to live Within the past 12 months, did the food you bought not last and you didn't have the money to get more?: Never true Within the past 12 months, did you worry whether your food would run out before you got money to buy more?: Never true Do you have trouble paying for medicines?: No Do you have trouble getting transportation to medical appointments?: No Do you have trouble paying your heating and electricity bill?: No Do you have trouble taking care of your child, family member or friend?: No Do you have trouble with day-to-day activities such as bathing, preparing meals, shopping, managing finances, etc.?: No Are you currently unemployed and looking for a job?: No Are you interested in more education?: No Please select the resources that you would like help with: None Currently or been in a relationship where the following occur: I choose not to answer THRIVE Score: 0 AUDIT C Alcohol Use Questionnaire (AUDIT-C) 2. How many drinks containing alcohol do you have on a typical day when you are drinking?: 1 or 2 3. How often do you have six or more drinks on one occasion?: Never Total Score: 0 GILLIAN-7 AMB Questionnaire GILLIAN-7 Date GILLIAN - 7 assessed: 11/20/24 Feeling nervous, anxious, or on edge: 0 = Not at all Not being able to stop or control worryin = Not at all Worrying too much about different things: 0 = Not at all Trouble relaxin = Not at all Being so restless that it is hard to sit still: 0 = Not at all Becoming easily annoyed or irritable: 0 = Not at all Feeling afraid as if something awful might happen: 0 = Not at all Total GILLIAN-7 score (0-4 normal; 5-9 mild; 10-14 moderate; 15-21 severe): 0 Source: Developed by Drs. Sidney Patel, Maeve Rahman, Ralph Sanz and colleagues, with an educational pedro from [employer]. Review of Systems Const Denies headache(s) and Denies weakness Eyes Denies change in vision ENT Reports dizziness (Occasional dizziness, usually when getting up from a sitting position), Denies headache(s), Denies nasal congestion and Denies nasal discharge Card Denies chest pain, Denies lightheadedness, Denies palpitations and Denies dyspnea Resp Denies chest congestion, Denies cough, Denies dyspnea and Denies wheezing GI Denies abdominal pain and Denies change in bowel habits Details: goes to [facility] in [place] , has appt for pap/pelvic exam in 12/2024 Denies urinary frequency, Denies dysuria and Denies urinary urgency Musc Reports no additional complaints Skin/Breast Denies breast pain, Denies breast mass and Denies rash Neuro Reports dizziness (Occasional dizziness, usually when getting up from a sitting position), Denies headache(s) and Denies weakness Psych Reports no additional complaints Endo Denies polydipsia, Denies polyuria and Denies palpitations William/Lymph Reports no additional complaints Aller/Immun Denies seasonal rhinorrhea and Denies wheezing Physical exam (Primary Care) Vital Signs: Last Vital Signs Temp 98.4 F 05/29/25 13:42 Pulse 80 05/29/25 13:42 Resp 15 05/29/25 13:42 BP 120/80 05/29/25 13:42 Pulse Ox 97 05/29/25 13:42 Oxygen Delivery Method Room Air 05/29/25 13:42 BMI result Body Mass Index 30.4 Tobacco/Smoking Status: Tobacco use Status Tobacco use date assessed 05/29/25 05/29/25 13:28 Patient Tobacco Use Status Never used Tobacco 05/29/25 13:28 e-Cigarette/Vaping Use Never Used 05/29/25 13:28 PHQ-9: PHQ-9 Score PHQ-9: Total score 0 05/29/25 14:12 Depression Screening Interpretation: Negative Thrive Assessment: Date of Thrive Assessment Date Thrive assessed 11/20/24 05/29/25 13:28 Currently or been in a relationship where the following occur: I choose not to answer Const Other: Alert oriented x3, no acute cardiorespiratory distress, ambulatory normal gait HENMT Ears: external ears normal General nose exam: Normal external nose present Face and sinus: Yes face symmetric Mouth: Normal oral and palatal mucosa present and moist mucous membranes Eyes General: appearance normal, both eyes and all related structures Neck Other: Supple with no lymphadenopathy, thyroid gland nonpalpable Resp Effort & Inspection: normal respiratory effort and able to speak in complete sentences Auscultation: clear to auscultation bilaterally Cardio Other: S1-S2 present regular rate and rhythm GI Other: Normal bowel sounds, soft, nontender with no mass palpated General: Yes no CVA tenderness Back/Spine/Pelvis Back: no CVA tenderness and No back tenderness Skin General skin exam: no rashes or lesions noted Neuro General: gait normal, tone normal and No moves all extremities Extrem General: Yes full ROM, Yes no joint enlargement and Yes no pedal edema Psych Appearance: grossly normal and well kempt Speech and movement: Normal speech and movement present Affect: normal affect Results Reviewed Results Reviewed: Name: Shelli Hernandez Age/Sex: 65/F : 1960 Unit#: [id number] Attend Dr: Jody Feliciano MD Re05/28/25 Status: DEP REF Location: [facility] Disch: SPEC : [id number] JAIME: 05/28/25 STATUS: COMP REQ : [id number] RECD: 05/28/[address]: Jody Feliciano MD COMP: 05/28/25-1853 ENTERED: 05/28/25-[address]: ORDERED: Met Prof Fast, AST, ALT, Lipid Panel, Vitamin D 25-OH, TSH Rflx Test Result Flag Reference Sodium 140 135-145 mmol/L Potassium 4.3 3.3-5.1 mmol/L CL 109 H 96-108 mmol/L CO2 24 22-29 mmol/L Gap 11 L 12-20 BUN 18 H 9-16 mg/dL Creat 0.74 0.5-1.4 mg/dL eGFR > 60 Chronic Kidney Disease: Estimated GFR < 60 mL/min/1.73m2 Severe Kidney Disease: Estimated GFR < 15 mL/min/1.73m2 FBS 82 60-99 mg/dL CA 9.7 8.4-10.2 mg/dL AST (GOT) 30 5-31 U/L ALT (GPT) 38 H 0-31 U/L Triglyceride 136 <150 mg/dL Desirable Triglyceride: less than 150 mg/dL Borderline High Triglyceride 150-199 mg/dL High Triglyceride: 200-499 mg/dL Very High Triglyceride: greater than or equal to 5OO mg/dL Cholesterol 207 H <200 mg/dL Desirable Cholesterol: less than 200 mg/dL Borderline High Cholesterol: 200-239 mg/dL High Cholesterol: greater than 239 mg/dL LDL Calculated 125 H <100 mg/dL Desirable LDL: less than 100 mg/dL Near Optimal/Above Optimal LDL: 110-129 mg/dL Borderline High LDL: 130-159 mg/dL High LDL: 160-189 mg/dL Very High LDL: greater than or equal to 190 mg/dL HDL 55 >40 mg/dL Desirable HDL: greater than 40 mg/dL Note: This HDL assay may give artificially low results in patients with liver disease. Vitamin D 25-OH 52.6 >30 ng/mL Health Based Reference Values* < 20 ng/mL Deficient 20-30 ng/mL Insufficient > 30 ng/mL Sufficient *Nicole KONG. N Engl J Med. 2007;357:266-280 There is no well-established upper level of normal vitamin D levels. Some laboratories use 50 ng/mL as an upper limit of normal. However, toxicity is patient-dependent and may occur at any level. Careful correlation with the patient's presentation is necessary and, if there is concern for vitamin D toxicity, treatment should be considered irrespective of the serum level. Care must be taken in interpreting Vitamin D results from different laboratories and methodologies. Published data demonstrated that results from patients undergoing hemodialysis may show a negative bias when tested with various automated 25-OH vitamin D assays when compared to LC-MS/MS. When testing samples from patients whose predominant form of Vitamin D is Vitamin D2, such as patients receiving Vitamin D2 supplementation, results that are subtherapeutic should be confirmed with another method such as LC-MS/MS. TSH 1.36 0.32-4.0 uIU/mL Coding Level of Care Code Est Pt Level 4 (74918) Complex EM visit Add On G2211 Diagnoses Generalized anxiety disorder F41.1 Essential hypertension I10 Hyperlipidemia, unspecified hyperlipidemia type E78.5 Hyperlipidemia type: unspecified Obesity (BMI 35.0-39.9 without comorbidity) E66.9 Gastroesophageal reflux disease, unspecified whether esophagitis present K21.9 Esophagitis presence: esophagitis presence not specified Primary insomnia F51.01 Insomnia type: primary Assessment & Plan Assessment & Plan (1) Generalized anxiety disorder: Code(s): F41.1 - Generalized anxiety disorder Category: Medical Plan: Continued on current dose of sertraline and BuSpar (2) Essential hypertension: Code(s): I10 - Essential (primary) hypertension Category: Medical Plan: Blood pressure at goal of less than 130/80. Continue with lisinopril 10 mg daily. Reinforced importance of following a low sodium diet, getting regular exercise, and lowering stress levels. (3) Hyperlipidemia: Code(s): E78.5 - Hyperlipidemia, unspecified Category: Medical Qualifiers: Hyperlipidemia type: unspecified Qualified Code(s): E78.5 - Hyperlipidemia, unspecified Plan: Reviewed recent fasting lipid profile with patient with higher LDL cholesterol as compared to last check. . Reinforced adherence to low-cholesterol diet and regular exercise, at least 30 minutes 3 to 4 times a week. Advised patient to make healthy food choices, eat more fruits, vegetables, whole grains, wild caught fish and low-fat dairy. Limit amount of meat and fried or fatty food products, as well as processed foods and fast foods. (4) Obesity (BMI 35.0-39.9 without comorbidity): Comment: Code(s): E66.9 - Obesity, unspecified Category: Medical Plan: Continued on we go be 2.4 mg injected subcutaneously once weekly, in addition to adherence to healthy eating habits and regular exercise. (5) GERD (gastroesophageal reflux disease): Comment: Had EGD done by Dr. grider in 2013, with a which also showed hiatal hernia Code(s): K21.9 - Gastro-esophageal reflux disease without esophagitis Category: Medical Qualifiers: Esophagitis presence: esophagitis presence not specified Qualified Code(s): K21.9 - Gastro-esophageal reflux disease without esophagitis Plan: Discontinued omeprazole, prescription sent for famotidine 40 mg per tablet to take 1 tablet 1-1/2 hour a.c. or 2 hours after eating. (6) Insomnia: Code(s): G47.00 - Insomnia, unspecified Category: Medical Qualifiers: Insomnia type: primary Qualified Code(s): F51.01 - Primary insomnia Plan: Currently on zolpidem takes as needed Orders: Orders Influenza [id number] Immunization Today Z23 - Encounter for immunization Basic Metabolic Panel Fasting 02/09/26 E66.9 - Obesity, unspecified, E78.5 - Hyperlipidemia, unspecified, F41.1 - Generalized anxiety disorder, F51.01 - Primary insomnia, I10 - Essential (primary) hypertension, K21.9 - Gastro- esophageal reflux disease without esophagitis Aspartate Amino Transferase 02/09/26 E66.9 - Obesity, unspecified, E78.5 - Hyperlipidemia, unspecified, F41.1 - Generalized anxiety disorder, F51.01 - Primary insomnia, I10 - Essential (primary) hypertension, K21.9 - Gastro- esophageal reflux disease without esophagitis Vitamin D 25-OH Total 02/09/26 E66.9 - Obesity, unspecified, E78.5 - Hyperlipidemia, unspecified, F41.1 - Generalized anxiety disorder, F51.01 - Primary insomnia, I10 - Essential (primary) hypertension, K21.9 - Gastro-esophageal reflux disease without esophagitis Lipid Panel 02/09/26 E66.9 - Obesity, unspecified, E78.5 - Hyperlipidemia, unspecified, F41.1 - Generalized anxiety disorder, F51.01 - Primary insomnia, I10 - Essential (primary) hypertension, K21.9 - Gastro-esophageal reflux disease without esophagitis Alanine Aminotransferase 02/09/26 E66.9 - Obesity, unspecified, E78.5 - Hyperlipidemia, unspecified, F41.1 - Generalized anxiety disorder, F51.01 - Primary insomnia, I10 - Essential (primary) hypertension, K21.9 - Gastro- esophageal reflux disease without esophagitis Medications: New famotidine 40 mg PO DAILY 90 tabs 4RF Fluarix [id number] (PF) (flu vac ts (6mos up)-PF) 0.5 mL IM ONCE 0.5 mL 0RF NS Z23 - Encounter for immunization Refilled bupropion HCl XL Local fill 150 mg PO QAM 90 tabs 4RF sertraline 50 mg PO DAILY 90 tabs 4RF lisinopril Local fill only 10 mg PO DAILY 90 tabs 4RF Discontinued omeprazole Discontinued Reason: Doctor's Order 40 mg PO DAILY 90 caps 0RF
[2025-05-29 13:42] VITALS: BP 120/80; PULSE 80; RESP 15; TEMP 36.9; O2SAT 97; BMI 30.4
--- OUTSIDE RECORDS SUMMARY | 2025-05-29 15:25 | XMS_ITS | Clinical Summary ---
Author Organization [facility] [address] [facility] lding Address [address] [place] [address] Phone Care Team Providers Care Hairmasters Manager Name Role Phone Jody Feliciano MD Primary [...] PROCEDURE: HISTORICAL CHOLECYSTECTOMY ENDOMETRIAL ABLATION 08 PROCEDURE: RI ENDOMETRIAL ABLTJ THERMAL W/O HYSTEROSCOPIC GUID OTHER SURGICAL HISTORY 10/2014 PROCEDURE: RI EXTRAPLEURAL ENUCLEATION EMPYEMA EMPYEMECTOMY Medical History Medical [...] on file Obstetrics History Plan of Treatment Health Maintenance Due Date Last Done Comments DTaP,Tdap,and Td Vaccines (1 - Tdap) 1981 Pneumococcal Vaccine: 50+ Years (1 of 1 - PCV) 2012 Zoster Vaccines (1 of 2) 2012 Cervical Cancer Screening: Pap Smear 01/07/2018 01/07/2015 Colorectal Cancer Screening: Colonoscopy 08/20/2022 HIV Screening 08/20/2022 Hepatitis C Screening 08/20/2022 Social Influencers of Health Screening 08/20/2022 Breast Cancer Screening 04/27/2023 04/27/20, 02/21/2019, 08/01/2017, Additional history exists Depression Screening 09/11/2024 COVID-19 Vaccine ( season) 2025 Influenza Vaccine (#1) 2025 RSV Immunization Adult Patients (1 - 1-dose 75+ series) 2037 HIB [...] age to complete this topic Meningococcal B Vaccine Aged Out No l onger eligible based on patient's age to complete [...] screening mammogram for malignant neoplasm of breast PAP SMEAR Routine 01/07/2015 from Last 3 [...] reviewed with CAD and compared to previous. The breasts are composed mostly of fatty tissue. No suspicious mass, architectural distortion or suspicious calcifications [...] Final Res ult * Pap Smear (01/07/2015) HM Pap smear NEGATIVE, ABSTRACTED Historical Provider HEALTH MAINTENANCE Final Result from Last 3 Months or Most Recently Relevant to Health Maintenance Insurance MEDICARE [employer] Care Teams Hairmasters Manager Relationship Specialty Start Date End Date Jody Feliciano MD [address] [place] [address] PCP - General 02/26/24
--- OUTSIDE RECORDS SUMMARY | 2025-05-29 15:25 | XMS_ITS | Patient Health Record ---
Author Organization [facility] [address] Address [address] [place] [address] Care Team Providers Care Process Tank Tender Name Role Phone Quynh Ramirez Unavailable [phone] Reason For Referral No Information Plan Of Treatment No Information Insurance Providers Payer Name Payer Address Payer Phone Subscriber Number Group Number Insured Name Patient Relationship to Insured Coverage Start Date Coverage End Date [facility] [address] [facility] [place] [id number] [phone] [id number] Shleli Hernandez Self - patient is the insured
--- OUTSIDE RECORDS SUMMARY | 2025-05-29 15:25 | XMS_ITS | Encounter Summary ---
Author Organization [facility] Address [address] [place] [address] Care Team Providers Care Photocopying Equipment Mechanic Name Role Phone Jody Feliciano MD Primary Care Provider Encounter Details Date Type Department Care Team (Late st Contact Info) Description 11/29/2024 Lab Requisition [facility] - Main Lab [address] [place] [address] Jesus Harris MD [address] [facility] [address] [place] [address] Other microscopic hematuria Social History Tobacco Use Types Packs/Day Years [...] Procedure Name Priority Date/Time Associated Diagnosis Comments COMPLETE BLOOD COUNT Routine 11/29/2024 3:16 PM EDT Other microscopic hematuria documented in this encounter Results * Complete blood count (11/29/2024 3:16 PM EDT) WBC 7.0 4.8 - 10.8 K/[facility] LAB HEMETOLOGY METHOD 11/29/2024 7:21 PM EDT [facility] RBC 4.80 3.80 - 4.80 M/mcL LAB HEMETOLOGY METHOD 11/29/2024 7:[address] [facility] Hemoglobin 14.6 11.5 - 16.0 g/dL LAB HEMETOLOGY METHOD 11/29/2024 7:[address] [facility] Hematocrit 44.8 35.0 - 47.0 % LAB HEMETOLOGY METHOD 11/29/2024 7:[address] [facility] MCV 92.6 79.0 - 98.0 FL LAB HEMETOLOGY METHOD 11/29/2024 7:[address] [facility] MCH 30.2 27.0 - 32.0 pcg LAB HEMETOLOGY METHOD [facility] MCHC 32.6 32.0 - 37.0 g/dL LAB HEMETOLOGY METHOD 11/29/2024 7[facility] RDW 12.5 11.0 - 15.0 % LAB HEMETOLOGY METHOD 11/29/2024 7:[address] [facility] Platelets 317 130 - 400 K/mcL LAB HEMETOLOGY METHOD 11/29/2024 7[facility] MPV 9.5 7.0 - 11.0 FL LAB HEMETOLOGY METHOD 11/29[facility]2024 7[facility] NRBC 0.0 <1.0 % LAB HEMETOLOGY METHOD 11/29/2024 7:21 PM [facility] NRBC Absolute 0.00 <0.10 K/mcL LAB HEMETOLOGY METHOD 11/29/2024 7:21 PM [facility] Blood Venous blood specimen / Unknown 11/29/2024 3:16 PM EDT 11/29/2024 6:43 PM EDT Jesus Harris MD LAB BLOOD ORDERABLES Final Resu lt [facility] ([facility] [place] [address] [place] [address], documented in this encounter Visit Diagnoses Diagnosis Other microscopic hematuria documented in this encounter Care Teams Photocopying Equipment Mechanic Relationship Specialty Start Date End Date Jody Feliciano MD [address] [place] [address] PCP - General 02/26/24 documented as of this encounter
--- OUTSIDE RECORDS SUMMARY | 2025-05-29 15:25 | XMS_ITS | Clinical Summary ---
Author Organization [facility] Address [address] [place] [address] Care Team Providers Care Sweeper Brush Maker Machine Name Role Phone Jody Feliciano MD Primary [...] Description 08/19/2025 3:00 PM EST Office Visit [address] [phone] Laura Leonard MD [address] [place] [address] [address] [place] [address] Health Maintenance Due Date Last Done Comments [...] Name Priority Date/Time Associated Diagnosis Comments THINPREP PAP(DIRECTOR GOVERNMENT) HPV SCR RFX HPV 16,18/45 Routine 12/09/2024 12:00 AM EDT from Last 3 Months or Most Recently Relevant to Health Maintenance Results * ThinPrep Pap(Care Navigator) HPV Scr Rfx HPV 16,18/45 (12/09/2024 12:00 [...] Date: NG HPV RESULTS: HPV mRNA E6/E7 [id number] Approved: 12/10/24 Negative REF RANGE: Negative CPT Codes: 29346 ICD Codes: Z01.419 12/09/2024 12/10/2024 12: 54 AM EDT [facility] Lakisha Corona MD LAB AMB PATH/CYTO ORDERABLE S Final Result Performing Organization Address City/State/[facility] Co de Phone Number [facility] [address], [place] from Last 3 Months or Most Recently Relevant to Health Maintenance Insurance MEDICARE PART A [facility] [place] Care Teams Sweeper Brush Maker Machine Relationship Specialty Start Date End Date Jody Feliciano MD [address] [place] [address] PCP - General Internal Medicine 05/24/23
--- OUTSIDE RECORDS SUMMARY | 2025-05-29 15:25 | XMS_ITS | Encounter Summary ---
Author Organization [facility] Address [address] [place] [address] Care Team Providers Care Plant Maintenance Supervisor Name Role Phone Jody Feliciano MD Primary Care Provider [phone] Encounter Details Date Type Department Care Team (Late st Contact Info) Description 11/29/2024 Lab Requisition [facility] - Main Lab [address] [facility] [place] [address] Jesus Harris MD [address] [facility] [address] [place] [id number] Urinary tract infection, site not specified Social History Tobacco Use Types Packs/Day Years [...] Procedure Name Priority Date/Time Associated Diagnosis Comments CULTURE URINE Routine 11/29/2024 4:30 PM EDT Urinary tract infection, site not specified documented in this encounter Results * Culture urine (11/29/2024 4:30 PM EDT) Culture, Urine 10,000-49,000 CFU/mL Mixed urogenital jaci, no uropathogens present. Suggest repeat specimen if clinically indicated. 11/30/2024 2:53 PM EDT [facility] Urine Urine specimen obtained by clean catch procedure / Unknown 11/29/2024 4:30 PM EDT 11/29/2024 6:01 PM EDT us Jesus Harris MD LAB MICROBIOLOGY - GENERAL SIMA QUINTEROS Final Result [facility] [address] [place] [address], documented in this encounter Visit Diagnoses Diagnosis Urinary tract infection, site not specified documented in this encounter Care Teams Plant Maintenance Supervisor Relationship Specialty Start Date End Date Jody Feliciano MD [address] [place] [address] PCP - General 02/26/24 documented as of this encounter
== END 2025-05-29 14:36 | disposition home or self-care (01) ==
LOC: HO.HMCC 13:24
PROVIDERS: PCP Internal Medicine; Visit Provider Internal Medicine
DX: I10 Essential (primary) hypertension (principal); F41.1 Generalized anxiety disorder; E66.9 Obesity, unspecified; Z68.30 Body mass index [BMI] 30.0-30.9, adult; E78.5 Hyperlipidemia, unspecified; K21.9 Gastro-esophageal reflux disease without esophagitis; F51.01 Primary insomnia; Z23 Encounter for immunization

== ENCOUNTER → 2025-05-29 13:23 | Outpatient (BNVA) | payer BC, SELFPAY | PROVIDERS: PCP Internal Medicine; Visit Provider Internal Medicine | DX: Z23 Encounter for immunization (principal); F41.1 Generalized anxiety disorder; I10 Essential (primary) hypertension; E78.5 Hyperlipidemia, unspecified; E66.9 Obesity, unspecified; Z68.30 Body mass index [BMI] 30.0-30.9, adult; K21.9 Gastro-esophageal reflux disease without esophagitis; F51.01 Primary insomnia; Z71.3 Dietary counseling and surveillance | CPT/HCPCS: 90471; 90656 ==